=== PATIENT | female | born 1950 | race Caucasian/White ===

== ENCOUNTER 2017-05-31 05:25 | Inpatient (IN) | payer MEDICARE, MEDICAID ==
[~2017-05-31] VITALS: Ht 157.5 cm; Wt 72.6 kg
[~2017-05-31 05:25] MED LIST: AMAN100C16 PO; ATEN-42 PO; LISI40TA4 PO; PRAM1.5T6 PO; SIMV20TA6 PO; [UNRECOGNIZED DRUG - CODE] PO
[2017-05-31 06:29] LABS: CLARITY URINE CLEAR (CLEAR); COLOR URINE YELLOW (YELLOW); GLUCOSE URINE NEGATIVE (NEGATIVE); KETONES URINE NEGATIVE (NEGATIVE); LEUKOCYTE ESTERASE URINE 2+ (NEGATIVE); NITRITE URINE NEGATIVE (NEGATIVE); OCCULT BLOOD URINE NEGATIVE (NEGATIVE); PROTEIN URINE NEGATIVE (NEGATIVE); SPECIFIC GRAVITY URINE 1.021 (1.005-1.030); UROBILINOGEN URINE 0.2 E.U./dL (0.2-1.0)
[2017-05-31] MEDS ORDERED: LACTATED RINGERS 1,000 ML IV SCH (06:45)
[2017-05-31] MEDS ORDERED: LIDOCAINE HCL 1% 20ML VIAL (Pyxis) INJ ONE (07:18)
[2017-05-31] MEDS ORDERED: PROPOFOL 200MG/20ML VIAL IV ONE (07:18)
[2017-05-31] MEDS ORDERED: BUPIVACAINE/EPINEPH/PF 0.25%/0.0005 10ML ONE ×2 (07:18→07:31)
[2017-05-31] MEDS ORDERED: MORPHINE SULFATE/PF 1MG/ML 10ML AMP ONE (07:18)
[2017-05-31] MEDS ORDERED: NORMAL SALINE 0.9% 10 ML SYR ONE ×2 (07:18→07:41)
[2017-05-31] MEDS ORDERED: BACITRACIN 50,000 UNITS/VIAL ONE (07:19)
[2017-05-31] MEDS ORDERED: SODIUM CHLORIDE 0.9% 10ML VIAL ONE ×2 (07:20→07:51)
[2017-05-31] MEDS ORDERED: PHENYLEPHRINE HCL 10 MG/ML 1ML (IV VIAL) IV ONE (07:20)
[2017-05-31] MEDS ORDERED: EPHEDRINE SULFATE 50MG/ML VIAL ONE (07:20)
[2017-05-31] MEDS ORDERED: FENTANYL CITRATE/PF 50MCG/ML 2ML VIAL ONE (07:27)
[2017-05-31] MEDS ORDERED: MIDAZOLAM HCL 2 MG/2 ML VIAL ONE (07:27)
[2017-05-31] MEDS ORDERED: SODIUM CHLORIDE 0.9% 100 ML in TRANEXAMIC ACID 10 ML IV SCH (07:30)
[2017-05-31] MEDS ORDERED: ESMOLOL HCL 10MG/ML 10ML VIAL IV ONE (07:30)
[2017-05-31] MEDS ORDERED: ACETAMINOPHEN 325MG TABLET PO PRN (07:45)
[2017-05-31] MEDS ORDERED: ZOLPIDEM TARTRATE 5MG TABLET PO PRN (07:45)
[2017-05-31] MEDS ORDERED: HYDROCODONE/ACETAMINOPHEN 10/325MG TABLET PO PRN (07:45)
[2017-05-31] MEDS ORDERED: METHYLENE BLUE 50 MG/10 ML AMP IV ONE (07:45)
[2017-05-31] MEDS ORDERED: MAGNESIUM HYDROXIDE 400MG/5ML 30ML UDC PO PRN (07:45)
[2017-05-31] MEDS ORDERED: TRAMADOL 50MG TABLET PO PRN (07:45)
[2017-05-31] MEDS ORDERED: ONDANSETRON HCL 4MG/2ML VIAL IV PRN (07:45)
[2017-05-31] MEDS ORDERED: CEFAZOLIN SODIUM 1000MG/VIAL ONE (07:51)
[2017-05-31] MEDS ORDERED: METOCLOPRAMIDE HCL 10MG/2ML VIAL ONE (08:16)
[2017-05-31] MEDS ORDERED: DEXAMETHASONE 4MG/ML 1ML VIAL ONE (08:16)
[2017-05-31] MEDS ORDERED: GENTAMICIN SULF 40MG/ML 2ML VIAL ONE ×2 (08:28→09:46)
[2017-05-31] MEDS ORDERED: EPINEPHRINE 1:1000 1 MG/ML AMP ONE (08:29)
[2017-05-31] MEDS ORDERED: ROCURONIUM BROMIDE 10MG/ML VIAL 5ML IV ONE (08:49)
[2017-05-31] MEDS ORDERED: HYDRALAZINE 20MG/ML VIAL ONE (08:50)
[2017-05-31] MEDS ORDERED: MORPHINE SULFATE 2 MG/ML CPJ (NOT FOR IM USE) IV PRN (09:15)
[2017-05-31] MEDS ORDERED: LIDOCAINE HCL 1%/EPI 1:200,000 30 ML VIAL ONE (10:19)
[2017-05-31] MEDS ORDERED: BUPIVACAINE HCL 0.5% (5MG/ML) 50ML ONE (10:19)
[2017-05-31] MEDS ORDERED: TRANEXAMIC ACID 1,000 MG in SODIUM CHLORIDE 0.9% 100 ML IV NR (10:30)
[2017-05-31] MEDS ORDERED: LIDOCAINE HCL 2%/EPINEPHRINE/PF 10 ML VIAL INJ SCH (10:30)
[2017-05-31] MEDS ORDERED: NEOSTIGMINE METHYLSULFATE 1MG/ML 10 ML VIAL ONE (10:43)
[2017-05-31] MEDS ORDERED: GLYCOPYRROLATE 0.2 MG/ML 2ML VIAL ONE ×2 (10:43→11:13)
[2017-05-31] MEDS ORDERED: HYDR25TA PO (11:11)
[2017-05-31] MEDS ORDERED: ALEN70TA46 PO (11:11)
[2017-05-31] MEDS ORDERED: CHOL100044 PO (11:11)
[2017-05-31] MEDS ORDERED: ATEN-42 PO (11:11)
[2017-05-31] MEDS ORDERED: IBUP-1636 PO (11:11)
[2017-05-31] MEDS ORDERED: DICL100G16 TP (11:24)
[2017-05-31] MEDS ORDERED: HYDRALAZINE 20MG/ML VIAL IV ONE (11:45)
[2017-05-31] MEDS ORDERED: MORPHINE PCA 50MG/50ML IV PRN (12:00)
[2017-05-31] MEDS ORDERED: DIPHENHYDRAMINE INJ IV PRN (12:00)
[2017-05-31] MEDS ORDERED: ONDANSETRON INJ IV PRN (12:00)
[2017-05-31] MEDS ORDERED: NALOXONE INJ IV PRN (12:00)
[2017-05-31] MEDS ORDERED: MORPHINE SULFATE 4 MG/ML CPJ (NOT FOR IM USE) IV ONE (12:32)
[2017-05-31] MEDS ORDERED: HYDRALAZINE 20MG/ML VIAL IV NR (16:30)
[2017-05-31] MEDS ORDERED: DOCUSATE SODIUM 100MG CAPSULE PO SCH (17:00)
[2017-05-31] MEDS ORDERED: HYDRALAZINE 20MG/ML VIAL IV SCH ×2 (18:00→23:00)
[2017-05-31] MEDS ORDERED: NON PO (18:45)
[2017-05-31 19:30] VITALS: BP 128/77
[2017-05-31 20:00] VITALS: BP 150/78
[2017-05-31] MEDS: CARBIDOPA/LEVODOPA 25/100MG TABLET PO SCH (20:04)
[2017-05-31] MEDS: ATORVASTATIN CALCIUM 10MG TABLET PO SCH (20:04)
[2017-05-31] MEDS: ENTACAPONE 200MG TABLET PO SCH (20:05)
[2017-05-31] MEDS: AMANTADINE HCL 100 MG CAPSULE PO SCH (20:50)
[2017-05-31] MEDS ORDERED: NON FORMULARY PATIENT HOME MED EA PO SCH (21:00)
[2017-05-31] MEDS: CEFAZOLIN 2,000 MG in DEXT 5% WATER 100 ML IV SCH (21:59)
[2017-06-01] VITALS: BP 128/72
[2017-06-01 04:00] VITALS: BP 144/72
[2017-06-01] MEDS: CEFAZOLIN 2,000 MG in DEXT 5% WATER 100 ML IV SCH (05:30)
[2017-06-01] MEDS: CARBIDOPA/LEVODOPA 25/100MG TABLET PO SCH ×5 (06:17→20:45)
[2017-06-01 06:27] LABS: BASOPHILS % 0.3 % (0.0-2.0); EOSINOPHILS % 0.4 % (0.0-5.0); HEMATOCRIT. 31.3 % (36.0-48.0); HEMOGLOBIN. 10.3 g/dL (12.0-16.0); LYMPHOCYTES % 10.8 % (20.0-50.0); MEAN CORPUSCULAR HEMOGLOBIN 30.6 pg (28.0-32.0); MEAN CORPUSCULAR VOLUME 92.9 fL (81.0-99.0); MEAN PLATELET VOLUME 9.7 fl (7.4-10.4); MONOCYTES % 8.9 % (2.0-8.0); NEUTROPHILS % 79.6 % (40.0-76.0); PLATELET 198 x1000/uL (130-400); RED BLOOD CELL COUNT 3.37 mill/uL (4.2-5.4); RED CELL DISTRIBUTION WIDTH 14.6 % (11.6-14.6)
[2017-06-01] MEDS: ENTACAPONE 200MG TABLET PO SCH ×5 (06:38→20:44)
[2017-06-01 07:13] LABS: CARBON DIOXIDE 28 mEq/L (21-32); CHLORIDE 105 mEq/L (98-107)
[2017-06-01 08:00] VITALS: BP 147/66
[2017-06-01] MEDS ORDERED: NON FORMULARY PATIENT HOME MED EA PO SCH ×2 (09:00)
[2017-06-01] MEDS ORDERED: RIVAROXABAN 10 MG TABLET PO SCH (09:00)
[2017-06-01] MEDS: ATENOLOL 25MG TABLET PO SCH (09:09)
[2017-06-01] MEDS: AMANTADINE HCL 100 MG CAPSULE PO SCH ×3 (09:09→17:33)
[2017-06-01] MEDS: LISINOPRIL 40MG TABLET PO SCH ×2 (09:09→17:33)
[2017-06-01] MEDS: HYDROCODONE/ACETAMINOPHEN 10/325MG TABLET PO PRN ×2 (09:10→20:47)
[2017-06-01] MEDS: FERROUS SULFATE 325MG TABLET PO SCH ×3 (10:39→17:32)
[2017-06-01 12:00] VITALS: BP 119/59
[2017-06-01] MEDS: DOCUSATE SODIUM 100MG CAPSULE PO SCH ×2 (13:12→17:32)
[2017-06-01 16:00] VITALS: BP 151/75
[2017-06-01 20:00] VITALS: BP 143/62
[2017-06-01] MEDS: ATORVASTATIN CALCIUM 10MG TABLET PO SCH (20:44)
[2017-06-02] VITALS: BP 131/64
[2017-06-02] MEDS: HYDROCODONE/ACETAMINOPHEN 10/325MG TABLET PO PRN ×2 (01:39→05:16)
[2017-06-02 04:00] VITALS: BP 137/62
[2017-06-02] MEDS: ENTACAPONE 200MG TABLET PO SCH ×3 (06:05→13:51)
[2017-06-02] MEDS: CARBIDOPA/LEVODOPA 25/100MG TABLET PO SCH ×3 (06:06→13:51)
[2017-06-02 07:00] LABS: BASOPHILS % 0.3 % (0.0-2.0); EOSINOPHILS % 1.8 % (0.0-5.0); HEMATOCRIT. 29.9 % (36.0-48.0); HEMOGLOBIN. 10.2 g/dL (12.0-16.0); LYMPHOCYTES % 10.6 % (20.0-50.0); MEAN CORPUSCULAR HEMOGLOBIN 31.3 pg (28.0-32.0); MEAN CORPUSCULAR VOLUME 92.3 fL (81.0-99.0); MEAN PLATELET VOLUME 9.2 fl (7.4-10.4); MONOCYTES % 7.1 % (2.0-8.0); NEUTROPHILS % 80.2 % (40.0-76.0); PLATELET 166 x1000/uL (130-400); RED BLOOD CELL COUNT 3.24 mill/uL (4.2-5.4); RED CELL DISTRIBUTION WIDTH 14.7 % (11.6-14.6)
[2017-06-02 08:00] VITALS: BP 121/59
[2017-06-02] MEDS: LISINOPRIL 40MG TABLET PO SCH (08:34)
[2017-06-02] MEDS: ATENOLOL 25MG TABLET PO SCH (08:34)
[2017-06-02] MEDS: DOCUSATE SODIUM 100MG CAPSULE PO SCH (08:44)
[2017-06-02] MEDS: AMANTADINE HCL 100 MG CAPSULE PO SCH ×2 (08:44→12:14)
[2017-06-02] MEDS: FERROUS SULFATE 325MG TABLET PO SCH ×2 (08:44→12:14)
[2017-06-02 12:00] VITALS: BP 161/86
[2017-06-02 15:18] VITALS: BP 161/86
== END 2017-06-02 16:22 | disposition home health service (06) | DRG 302 ==
LOC: OR 05:25 → 6EST 18:20
PROVIDERS: ADMIT Internal Medicine; ATTEND Internal Medicine
PROC: 0SRD0J9 Replacement of Left Knee Joint with Synthetic Substitute, Cemented, Open Approach (ICD-10-PCS; principal; 2017-05-31 07:30)
DX: M17.12 Unilateral primary osteoarthritis, left knee (principal); G20 Parkinson's disease; E83.51 Hypocalcemia; I10 Essential (primary) hypertension; G89.29 Other chronic pain; M65.9 Synovitis and tenosynovitis, unspecified; Z96.612 Presence of left artificial shoulder joint; Z98.49 Cataract extraction status, unspecified eye; Z79.82 Long term (current) use of aspirin; Z79.899 Other long term (current) drug therapy
CPT/HCPCS: 36415; 73560; 80048; 81001; 85025; 86850; 86870; 86900; 86920; 88305; 88311; 93970; 97110; 97116; 97163; 97166; 97530; A4216; C1776; J0171; J0360; J0690; J1100; J1580; J2250; J2270; J2274; J2370; J2405; J2704; J2710; J2765; J3010; J3490; J7040; J7050; J7060; J7120; L1830; Q9968

== ENCOUNTER 2017-06-09 14:53 | Emergency (ER) | payer MEDICARE, MEDICAID ==
[~2017-06-09] VITALS: Ht 167.6 cm; Wt 76.0 kg
[~2017-06-09 14:53] MED LIST changes: +ALEN70TA46 PO; +CHOL100044 PO; +DICL100G16 TP; +HYDR25TA PO; +IBUP-1636 PO
[2017-06-09] MEDS ORDERED: SODIUM CHLORIDE 0.9% 1,000 ML IV ONE (15:46)
[2017-06-09 16:28] LABS: BASOPHILS % 0.4 % (0.0-2.0); EOSINOPHILS % 0.4 % (0.0-5.0); HEMATOCRIT. 33.4 % (36.0-48.0); HEMOGLOBIN. 11.1 g/dL (12.0-16.0); LYMPHOCYTES % 8.1 % (20.0-50.0); MEAN CORPUSCULAR HEMOGLOBIN 30.2 pg (28.0-32.0); MEAN CORPUSCULAR VOLUME 90.8 fL (81.0-99.0); MEAN PLATELET VOLUME 8.5 fl (7.4-10.4); MONOCYTES % 7.8 % (2.0-8.0); NEUTROPHILS % 83.3 % (40.0-76.0); PLATELET 308 x1000/uL (130-400); RED BLOOD CELL COUNT 3.68 mill/uL (4.2-5.4); RED CELL DISTRIBUTION WIDTH 14.1 % (11.6-14.6)
[2017-06-09 16:33] LABS: INR 1.1; PROTHROMBIN TIME 11.1 sec (9.4-11.6)
[2017-06-09 16:41] LABS: CARBON DIOXIDE 33 mEq/L (21-32); CHLORIDE 99 mEq/L (98-107)
[2017-06-09] MEDS ORDERED: CEFTRIAXONE 1 G PREMIX 50 ML IV ONE (17:15)
[2017-06-09] MEDS ORDERED: VANCOMYCIN 500 MG PREMIX 100 ML IV SCH (17:15)
[2017-06-09] MEDS ORDERED: TRAMADOL HCL/ACETAMINOPHEN 37.5/325MG TABLET PO ONE (18:45)
[2017-06-09] MEDS ORDERED: CARBIDOPA/LEVODOPA 25/100MG TABLET PO ONE (18:45)
[2017-06-09] MEDS ORDERED: ASPIRIN 325MG EC TABLET PO ONE (18:45)
[2017-06-09 19:42] VITALS: BP 155/95
== END 2017-06-09 20:38 | disposition home or self-care (01) ==
LOC: ER 14:53 → CANBEDREQ 20:57
DX: M25.562 Pain in left knee (principal); I10 Essential (primary) hypertension; E78.00 Pure hypercholesterolemia, unspecified; Z96.659 Presence of unspecified artificial knee joint
CPT/HCPCS: 36415; 80053; 83605; 85025; 85610; 85651; 86140; 87040; 96361; 96365; 96367; 99285; J0696; J3370; J7030

== ENCOUNTER 2017-06-18 13:18 | Inpatient (IN) | payer MEDICARE, MEDICAID ==
[~2017-06-18] VITALS: Ht 157.5 cm; Wt 64.9 kg
[2017-06-18 15:14] LABS: BASOPHILS % 0.7 % (0.0-2.0); EOSINOPHILS % 1.3 % (0.0-5.0); HEMATOCRIT. 30.5 % (36.0-48.0); HEMOGLOBIN. 10.3 g/dL (12.0-16.0); LYMPHOCYTES % 13.1 % (20.0-50.0); MEAN CORPUSCULAR HEMOGLOBIN 30.1 pg (28.0-32.0); NEUTROPHILS % 78.9 % (40.0-76.0); PLATELET 459 x1000/uL (130-400); RED BLOOD CELL COUNT 3.43 mill/uL (4.2-5.4); RED CELL DISTRIBUTION WIDTH 13.9 % (11.6-14.6)
[2017-06-18 15:22] LABS: INR 1.1; PROTHROMBIN TIME 11.4 sec (9.4-11.6)
[2017-06-18 15:31] LABS: CARBON DIOXIDE 29 mEq/L (21-32); CHLORIDE 102 mEq/L (98-107)
[2017-06-18 19:30] VITALS: BP 140/57
[2017-06-18 20:00] VITALS: BP 140/57
[2017-06-18] MEDS ORDERED: POTASSIUM CHLORIDE 20MEQ TABLET SR PO NR (21:11)
[2017-06-18] MEDS: CARBIDOPA/LEVODOPA 10/100MG TABLET PO SCH (23:17)
[2017-06-19] VITALS: BP 136/64
[2017-06-19 00:07] LABS: CLARITY URINE CLEAR (CLEAR); COLOR URINE YELLOW (YELLOW); GLUCOSE URINE NEGATIVE (NEGATIVE); KETONES URINE NEGATIVE (NEGATIVE); LEUKOCYTE ESTERASE URINE NEGATIVE (NEGATIVE); NITRITE URINE NEGATIVE (NEGATIVE); OCCULT BLOOD URINE NEGATIVE (NEGATIVE); PH URINE 6.5 (4.5-8.0); PROTEIN URINE NEGATIVE (NEGATIVE); SPECIFIC GRAVITY URINE 1.018 (1.005-1.030)
[2017-06-19] MEDS: PIPERACILLIN/TAZ 3.375G PREMIX 50 ML IV SCH ×5 (00:28→23:43)
[2017-06-19] MEDS: MORPHINE SULFATE 4 MG/ML CPJ (NOT FOR IM USE) IV PRN ×2 (00:36→10:11)
[2017-06-19] MEDS ORDERED: VANCOMYCIN 1 G PREMIX 200 ML IV NR (01:00)
[2017-06-19 04:00] VITALS: BP_SYST 120; BP_SYST 125; BP_DIAS 59; BP_DIAS 70
[2017-06-19 05:49] LABS: BASOPHILS % 0.5 % (0.0-2.0); HEMATOCRIT. 29.9 % (36.0-48.0); LYMPHOCYTES % 9.3 % (20.0-50.0); MEAN CORPUSCULAR HEMOGLOBIN 30.2 pg (28.0-32.0); MEAN CORPUSCULAR VOLUME 89.9 fL (81.0-99.0); MEAN PLATELET VOLUME 8.2 fl (7.4-10.4); MONOCYTES % 6.7 % (2.0-8.0); NEUTROPHILS % 82.5 % (40.0-76.0); PLATELET 437 x1000/uL (130-400); RED BLOOD CELL COUNT 3.32 mill/uL (4.2-5.4)
[2017-06-19] MEDS: CARBIDOPA/LEVODOPA 10/100MG TABLET PO SCH ×3 (06:00→21:27)
[2017-06-19 06:48] LABS: CARBON DIOXIDE 31 mEq/L (21-32); CHLORIDE 100 mEq/L (98-107)
[2017-06-19 08:00] VITALS: BP 136/58
[2017-06-19] MEDS: LISINOPRIL 40MG TABLET PO SCH ×2 (09:00→21:27)
[2017-06-19] MEDS: HYDROCHLOROTHIAZIDE 25MG TABLET PO SCH (09:00)
[2017-06-19] MEDS: CHOLECALCIFEROL (D3) 1000 UNIT TABLET PO SCH (09:00)
[2017-06-19] MEDS: ATENOLOL 25MG TABLET PO SCH (09:00)
[2017-06-19 12:10] VITALS: BP 138/69
[2017-06-19] MEDS ORDERED: CARBIDOPA/LEVODOPA 10/100MG TABLET PO SCH (14:00)
[2017-06-19] MEDS: PRAMIPEXOLE DI-HCL 0.5MG TABLET PO SCH ×2 (14:00→21:27)
[2017-06-19] MEDS ORDERED: GENTAMICIN SULF 40MG/ML 2ML VIAL ONE (14:12)
[2017-06-19] MEDS ORDERED: BUPIVACAINE/EPINEPHRINE/PF 0.25%/0.0005 30ML ONE (14:13)
[2017-06-19] MEDS ORDERED: BACITRACIN 50,000 UNITS/VIAL ONE (14:13)
[2017-06-19] MEDS ORDERED: HYDROMORPHONE HCL/PF 2MG/ML (OR) ONE (14:53)
[2017-06-19] MEDS ORDERED: TRANEXAMIC ACID 1,000 MG in SODIUM CHLORIDE 0.9% 100 ML IV NR ×2 (15:30→23:30)
[2017-06-19] MEDS ORDERED: VANCOMYCIN HCL 500 MG/VIAL ONE (15:31)
[2017-06-19] MEDS ORDERED: FENTANYL CITRATE/PF 50MCG/ML 2ML VIAL IV PRN (15:45)
[2017-06-19] MEDS ORDERED: ONDANSETRON HCL 4MG/2ML VIAL IV PRN ×2 (15:45→17:45)
[2017-06-19] MEDS ORDERED: HYDROMORPHONE HCL/PF 2MG/ML CPJ IV PRN (15:45)
[2017-06-19] MEDS ORDERED: MORPHINE SULFATE/PF 1MG/ML 10ML AMP ONE (15:49)
[2017-06-19] MEDS ORDERED: BACITRACIN/POLYMYXIN B SULFATE OINT 28.35GM TOP ONE (17:04)
[2017-06-19] MEDS ORDERED: MAGNESIUM HYDROXIDE 400MG/5ML 30ML UDC PO PRN (17:45)
[2017-06-19] MEDS ORDERED: ACETAMINOPHEN 325MG TABLET PO PRN (17:45)
[2017-06-19] MEDS ORDERED: HYDROCODONE/ACETAMINOPHEN 5/325MG TABLET PO PRN (17:45)
[2017-06-19] MEDS: FERROUS SULFATE 325MG TABLET PO SCH (17:50)
[2017-06-19] MEDS ORDERED: MORPHINE SULFATE 4 MG/ML CPJ (NOT FOR IM USE) IV PRN (18:00)
[2017-06-19] MEDS ORDERED: HYDROMORPHONE PCA 10MG/50ML IV PRN (18:45)
[2017-06-19] MEDS ORDERED: DIPHENHYDRAMINE INJ IV PRN (18:45)
[2017-06-19] MEDS ORDERED: NALOXONE INJ IV PRN (18:45)
[2017-06-19] MEDS ORDERED: ONDANSETRON INJ IV PRN (18:45)
[2017-06-19 20:00] VITALS: BP 125/62
[2017-06-20] VITALS: BP 118/64
[2017-06-20] MEDS: VANCOMYCIN 750 MG PREMIX 150 ML IV SCH ×2 (02:13→13:45)
[2017-06-20] MEDS: CARBIDOPA/LEVODOPA 10/100MG TABLET PO SCH ×3 (06:05→21:44)
[2017-06-20] MEDS: PIPERACILLIN/TAZ 3.375G PREMIX 50 ML IV SCH ×3 (06:05→18:50)
[2017-06-20] MEDS: PRAMIPEXOLE DI-HCL 0.5MG TABLET PO SCH ×3 (06:05→21:44)
[2017-06-20 06:56] LABS: BASOPHILS % 0.2 % (0.0-2.0); HEMATOCRIT. 28.9 % (36.0-48.0); HEMOGLOBIN. 9.8 g/dL (12.0-16.0); LYMPHOCYTES % 7.3 % (20.0-50.0); MEAN CORPUSCULAR HEMOGLOBIN 30.9 pg (28.0-32.0); MEAN PLATELET VOLUME 8.6 fl (7.4-10.4); NEUTROPHILS % 85.5 % (40.0-76.0); PLATELET 408 x1000/uL (130-400); RED BLOOD CELL COUNT 3.18 mill/uL (4.2-5.4)
[2017-06-20] MEDS: FERROUS SULFATE 325MG TABLET PO SCH ×3 (07:50→18:50)
[2017-06-20 08:00] VITALS: BP 149/63
[2017-06-20] MEDS: HYDROCHLOROTHIAZIDE 25MG TABLET PO SCH (10:30)
[2017-06-20] MEDS: CHOLECALCIFEROL (D3) 1000 UNIT TABLET PO SCH (10:30)
[2017-06-20] MEDS: DOCUSATE SODIUM 100MG CAPSULE PO SCH ×2 (10:30→18:50)
[2017-06-20] MEDS: LISINOPRIL 40MG TABLET PO SCH ×2 (10:30→21:44)
[2017-06-20] MEDS: ENOXAPARIN 40MG/0.4ML SYR SUBCUT SCH (10:31)
[2017-06-20] MEDS: ATENOLOL 25MG TABLET PO SCH (10:31)
[2017-06-20 12:00] VITALS: BP 132/63
[2017-06-20 16:00] VITALS: BP 117/62
[2017-06-20] MEDS ORDERED: TETANUS, DIPHTHERIA, PERTUSSIS VAC/PF 0.5ML (>7YR OLD) IM ONE (16:30)
[2017-06-20 20:00] VITALS: BP 107/97
[2017-06-21] VITALS: BP 124/68
[2017-06-21] MEDS: PIPERACILLIN/TAZ 3.375G PREMIX 50 ML IV SCH ×4 (00:44→17:47)
[2017-06-21] MEDS: VANCOMYCIN 750 MG PREMIX 150 ML IV SCH ×2 (01:57→13:15)
[2017-06-21 04:00] VITALS: BP 156/57
[2017-06-21] MEDS: CARBIDOPA/LEVODOPA 10/100MG TABLET PO SCH ×3 (05:57→21:35)
[2017-06-21] MEDS: PRAMIPEXOLE DI-HCL 0.5MG TABLET PO SCH ×3 (05:57→21:34)
[2017-06-21 08:00] VITALS: BP 126/62
[2017-06-21] MEDS: FERROUS SULFATE 325MG TABLET PO SCH ×3 (08:18→17:46)
[2017-06-21] MEDS: CHOLECALCIFEROL (D3) 1000 UNIT TABLET PO SCH (08:19)
[2017-06-21] MEDS: LISINOPRIL 40MG TABLET PO SCH ×2 (08:19→21:34)
[2017-06-21] MEDS: HYDROCHLOROTHIAZIDE 25MG TABLET PO SCH (08:19)
[2017-06-21] MEDS: DOCUSATE SODIUM 100MG CAPSULE PO SCH ×2 (08:19→17:46)
[2017-06-21] MEDS: ATENOLOL 25MG TABLET PO SCH (08:20)
[2017-06-21] MEDS: ENOXAPARIN 40MG/0.4ML SYR SUBCUT SCH (08:22)
[2017-06-21 12:00] VITALS: BP 108/56
[2017-06-21 16:00] VITALS: BP 138/72
[2017-06-21] MEDS: MORPHINE SULFATE 4 MG/ML CPJ (NOT FOR IM USE) IV PRN (18:53)
[2017-06-21 20:00] VITALS: BP 130/70
[2017-06-21] MEDS: HYDROCODONE/ACETAMINOPHEN 5/325MG TABLET PO PRN (21:47)
[2017-06-21] MEDS: CEFEPIME 2,000 MG in DEXT 5% WATER 100 ML IV SCH (22:51)
[2017-06-21] MEDS: LEVOFLOXACIN 250MG TABLET PO SCH (23:03)
[2017-06-22] VITALS (7 sets, daily range): BP systolic 103–154; BP diastolic 59–84
[2017-06-22] MEDS: CARBIDOPA/LEVODOPA 10/100MG TABLET PO SCH ×2 (05:45→13:21)
[2017-06-22] MEDS: PRAMIPEXOLE DI-HCL 0.5MG TABLET PO SCH ×2 (05:45→13:21)
[2017-06-22] MEDS: DOCUSATE SODIUM 100MG CAPSULE PO SCH ×2 (08:37→17:30)
[2017-06-22] MEDS: LISINOPRIL 40MG TABLET PO SCH ×2 (08:37→20:50)
[2017-06-22] MEDS: FERROUS SULFATE 325MG TABLET PO SCH ×3 (08:37→17:30)
[2017-06-22] MEDS: HYDROCHLOROTHIAZIDE 25MG TABLET PO SCH (08:37)
[2017-06-22] MEDS: CEFEPIME 2,000 MG in DEXT 5% WATER 100 ML IV SCH (08:37)
[2017-06-22] MEDS: CHOLECALCIFEROL (D3) 1000 UNIT TABLET PO SCH (08:37)
[2017-06-22] MEDS: ATENOLOL 25MG TABLET PO SCH (08:39)
[2017-06-22] MEDS: ENOXAPARIN 40MG/0.4ML SYR SUBCUT SCH (08:45)
[2017-06-22] MEDS: HYDROCODONE/ACETAMINOPHEN 5/325MG TABLET PO PRN (09:39)
[2017-06-22] MEDS ORDERED: MORPHINE SULFATE 4 MG/ML CPJ (NOT FOR IM USE) IV PRN (10:15)
[2017-06-22] MEDS: LEVOFLOXACIN 250MG TABLET PO SCH (20:50)
== END 2017-06-22 20:45 | DRG 791 ==
LOC: ER 14:01 → 6EST 15:39 → EDBEDREQ 15:41 → EDBEDREQTM 15:41 → ENRESERV 16:15
PROVIDERS: ADMIT Internal Medicine; ATTEND Internal Medicine
PROC: 0SRW0JZ Replacement of Left Knee Joint, Tibial Surface with Synthetic Substitute, Open Approach (ICD-10-PCS; 2017-06-19)
PROC: 0LQR0ZZ Repair Left Knee Tendon, Open Approach (ICD-10-PCS; 2017-06-19)
PROC: 0SPW0JZ Removal of Synthetic Substitute from Left Knee Joint, Tibial Surface, Open Approach (ICD-10-PCS; principal; 2017-06-19 12:00)
PROC: 02HV33Z Insertion of Infusion Device into Superior Vena Cava, Percutaneous Approach (ICD-10-PCS; 2017-06-22)
PROC: B5181ZA Fluoroscopy of Superior Vena Cava using Low Osmolar Contrast, Guidance (ICD-10-PCS; 2017-06-22)
DX: T81.31XA Disruption of external operation (surgical) wound, not elsewhere classified, initial encounter (principal); E44.0 Moderate protein-calorie malnutrition; G20 Parkinson's disease; M00.9 Pyogenic arthritis, unspecified; M25.062 Hemarthrosis, left knee; I10 Essential (primary) hypertension; D64.9 Anemia, unspecified; B96.5 Pseudomonas (aeruginosa) (mallei) (pseudomallei) as the cause of diseases classified elsewhere; E78.00 Pure hypercholesterolemia, unspecified; Z96.612 Presence of left artificial shoulder joint; Z96.652 Presence of left artificial knee joint; E66.9 Obesity, unspecified; B96.89 Other specified bacterial agents as the cause of diseases classified elsewhere; Y79.2 Prosthetic and other implants, materials and accessory orthopedic devices associated with adverse incidents; Y83.8 Other surgical procedures as the cause of abnormal reaction of the patient, or of later complication, without mention of misadventure at the time of the procedure; Y92.89 Other specified places as the place of occurrence of the external cause; Z68.26 Body mass index [BMI] 26.0-26.9, adult; Z79.899 Other long term (current) drug therapy; Z98.49 Cataract extraction status, unspecified eye; M96.840 Postprocedural hematoma of a musculoskeletal structure following a musculoskeletal system procedure
CPT/HCPCS: 36415; 36569; 71010; 73560; 76937; 77001; 80048; 80053; 80202; 81003; 85025; 85610; 85651; 86140; 86850; 86870; 86900; 87040; 87070; 87075; 87086; 87116; 87186; 87205; 88304; 90715; 93005; 93970; 97116; 97163; 97530; 99285; C1725; C1893; J0171; J0692; J1170; J1580; J1650; J2270; J2274; J2405; J2543; J3370; J3490; J7050; J7060; L8699

== ENCOUNTER 2020-06-03 10:32 | Inpatient (IN) | payer MEDICARE, MEDICAID ==
[~2020-06-03] VITALS: Ht 154.9 cm; Wt 71.8 kg
[~2020-06-03 10:32] MED LIST changes: -ALEN70TA46 PO; +ALEN70TA68 PO; -AMAN100C16 PO; +AMAN100T PO; -ATEN-42 PO; +CARB-32 PO; -DICL100G16 TP; +HYDR-4195 RC; -IBUP-1636 PO; +SIMV-43 PO; +SIMV-46 PO; -SIMV20TA6 PO; -[UNRECOGNIZED DRUG - CODE] PO
[2020-06-03] MEDS ORDERED: SODIUM CHLORIDE 0.9% 1,000 ML IV ONE (11:08)
[2020-06-03 11:55] LABS: BASOPHILS % 0.5 % (0.0-2.0); EOSINOPHILS % 3.2 % (0.0-5.0); HEMATOCRIT. 34.5 % (36.0-48.0); HEMOGLOBIN. 11.6 g/dL (12.0-16.0); LYMPHOCYTES % 12.3 % (20.0-50.0); MEAN CORPUSCULAR HEMOGLOBIN 31.9 pg (28.0-32.0); MONOCYTES % 5.6 % (2.0-8.0); NEUTROPHILS % 78.4 % (40.0-76.0); PLATELET 252 x1000/uL (130-400); RED BLOOD CELL COUNT 3.64 mill/uL (4.2-5.4); RED CELL DISTRIBUTION WIDTH 13.6 % (11.6-14.6)
[2020-06-03 11:58] LABS: CHLORIDE 106 mEq/L (98-107)
[2020-06-03 12:03] LABS: PARTIAL THROMBOPLASTIN TIME 22.3 sec (23.4-31.0); PROTHROMBIN TIME 10.6 sec (9.6-11.0)
[2020-06-03 14:08] LABS: CLARITY URINE CLEAR (CLEAR); COLOR URINE YELLOW (YELLOW); KETONES URINE NEGATIVE (NEGATIVE); LEUKOCYTE ESTERASE URINE NEGATIVE (NEGATIVE); NITRITE URINE NEGATIVE (NEGATIVE); OCCULT BLOOD URINE NEGATIVE (NEGATIVE); PROTEIN URINE TRACE (NEGATIVE); SPECIFIC GRAVITY URINE 1.016 (1.005-1.030)
[2020-06-03] MEDS ORDERED: ONDANSETRON HCL 4MG/2ML INJ IV PRN (15:45)
[2020-06-03 22:52] VITALS: BP 134/77
[2020-06-03] MEDS ORDERED: METO25TA6 PO (23:23)
[2020-06-04 00:11] VITALS: BP 126/64
[2020-06-04] MEDS: SODIUM CHLORIDE 0.9% 1,000 ML IV SCH ×2 (01:08→09:38)
[2020-06-04] MEDS ORDERED: PRAM0.5T3 PO (02:53)
[2020-06-04 04:00] VITALS: BP 146/65
[2020-06-04 06:11] LABS: BASOPHILS % 0.8 % (0.0-2.0); EOSINOPHILS % 5.7 % (0.0-5.0); HEMOGLOBIN. 10.3 g/dL (12.0-16.0); LYMPHOCYTES % 21.1 % (20.0-50.0); MEAN CORPUSCULAR HEMOGLOBIN 32.4 pg (28.0-32.0); MEAN CORPUSCULAR VOLUME 94.5 fL (81.0-99.0); MEAN PLATELET VOLUME 10.1 fl (7.4-10.4); MONOCYTES % 8.4 % (2.0-8.0); PLATELET 202 x1000/uL (130-400); RED BLOOD CELL COUNT 3.18 mill/uL (4.2-5.4); RED CELL DISTRIBUTION WIDTH 13.4 % (11.6-14.6)
[2020-06-04 08:00] VITALS: BP 134/71
[2020-06-04] MEDS ORDERED: MEDICATION NOT ON FORMULARY EA (Simvastatin 20 MG) PO SCH (09:00)
[2020-06-04] MEDS ORDERED: PRAMIPEXOLE DI-HCL 0.25MG TABLET PO SCH (09:00)
[2020-06-04] MEDS ORDERED: PRAMIPEXOLE DI HCL 0.5 MG PO SCH (09:00)
[2020-06-04] MEDS ORDERED: HYDROCHLOROTHIAZIDE 25MG TABLET PO SCH (09:00)
[2020-06-04] MEDS: CHOLECALCIFEROL (D3) 1000 UNIT TABLET PO SCH (09:23)
[2020-06-04] MEDS: CARBIDOPA/LEVODOPA 25/100MG TABLET PO SCH ×4 (09:23→21:18)
[2020-06-04] MEDS: HYDROCORTISONE 2.5% RECTAL CREAM 30GM PR SCH (09:25)
[2020-06-04] MEDS: PRAMIPEXOLE DI-HCL 0.25MG TABLET PO SCH ×3 (09:26→17:43)
[2020-06-04] MEDS: AMANTADINE HCL 100 MG CAPSULE PO SCH ×3 (09:40→17:43)
[2020-06-04] MEDS ORDERED: PNEUMOCOCCAL 23-VAL P-SAC VAC 0.5 ML IM ONE (12:00)
[2020-06-04 12:06] VITALS: BP 133/69
[2020-06-04 12:06] LABS: PLATELET ESTIMATE NORMAL
[2020-06-04 16:00] VITALS: BP 152/76
[2020-06-04 20:00] VITALS: BP 176/88
[2020-06-04] MEDS ORDERED: CLONIDINE 0.1MG TABLET PO PRN (20:45)
[2020-06-04] MEDS ORDERED: HYDROCHLOROTHIAZIDE 12.5MG CAPSULE PO SCH (20:48)
[2020-06-04] MEDS: ATORVASTATIN CALCIUM 10MG TABLET PO SCH (21:18)
[2020-06-05] VITALS: BP 115/79
[2020-06-05 03:09] LABS: OPIATES URINE SCREEN NEGATIVE (NEGATIVE)
[2020-06-05 03:10] LABS: *AMPHETAMINES SCREEN URINE NEGATIVE (NEGATIVE); *BENZODIAZEPINES SCREEN URINE NEGATIVE (NEGATIVE); *COCAINE SCREEN URINE NEGATIVE (NEGATIVE); CANNABINOID URINE SCREEN NEGATIVE (NEGATIVE); METHADONE URINE SCREEN NEGATIVE (NEGATIVE); PHENCYCLIDINE URINE SCREEN NEGATIVE (NEGATIVE)
[2020-06-05 03:11] LABS: *BARBITURATES SCREEN URINE NEGATIVE (NEGATIVE)
[2020-06-05 04:00] VITALS: BP 156/81
[2020-06-05] MEDS ORDERED: ALENDRONATE SODIUM 35MG TABLET PO SCH (07:20)
[2020-06-05 08:15] VITALS: BP 151/90
[2020-06-05] MEDS: CHOLECALCIFEROL (D3) 1000 UNIT TABLET PO SCH (09:36)
[2020-06-05] MEDS: HYDROCHLOROTHIAZIDE 12.5MG CAPSULE PO SCH (09:37)
[2020-06-05] MEDS: PRAMIPEXOLE DI-HCL 0.25MG TABLET PO SCH ×3 (09:37→20:05)
[2020-06-05] MEDS: AMANTADINE HCL 100 MG CAPSULE PO SCH ×3 (09:37→17:25)
[2020-06-05] MEDS: HYDROCORTISONE 2.5% RECTAL CREAM 30GM PR SCH (09:38)
[2020-06-05] MEDS: AMLODIPINE 10MG TABLET PO SCH (09:38)
[2020-06-05] MEDS: CARBIDOPA/LEVODOPA 25/100MG TABLET PO SCH ×4 (09:38→20:05)
[2020-06-05] MEDS: DOCUSATE SODIUM 100MG CAPSULE PO SCH ×2 (11:33→17:25)
[2020-06-05 11:59] VITALS: BP 148/77
[2020-06-05 15:48] VITALS: BP 138/85
[2020-06-05 20:00] VITALS: BP 140/77
[2020-06-05] MEDS: ATORVASTATIN CALCIUM 10MG TABLET PO SCH (20:05)
[2020-06-05] MEDS: POLYETHYLENE GLYCOL 3350 (17GM) 1 DOSE PACK PO SCH (20:06)
[2020-06-06 00:35] VITALS: BP 135/83
[2020-06-06 04:00] VITALS: BP 152/86
[2020-06-06 07:19] LABS: BASOPHILS % 0.6 % (0.0-2.0); EOSINOPHILS % 5.2 % (0.0-5.0); HEMATOCRIT. 36.9 % (36.0-48.0); HEMOGLOBIN. 12.7 g/dL (12.0-16.0); LYMPHOCYTES % 13.7 % (20.0-50.0); MEAN CORPUSCULAR HEMOGLOBIN 32.1 pg (28.0-32.0); MEAN CORPUSCULAR VOLUME 93.6 fL (81.0-99.0); MEAN PLATELET VOLUME 9.6 fl (7.4-10.4); MONOCYTES % 6.9 % (2.0-8.0); NEUTROPHILS % 73.6 % (40.0-76.0); PLATELET 222 x1000/uL (130-400); RED BLOOD CELL COUNT 3.94 mill/uL (4.2-5.4); RED CELL DISTRIBUTION WIDTH 13.1 % (11.6-14.6)
[2020-06-06 07:47] VITALS: BP 153/75
[2020-06-06] MEDS: HYDROCHLOROTHIAZIDE 12.5MG CAPSULE PO SCH (09:31)
[2020-06-06] MEDS: HYDROCORTISONE 2.5% RECTAL CREAM 30GM PR SCH (09:31)
[2020-06-06] MEDS: CARBIDOPA/LEVODOPA 25/100MG TABLET PO SCH ×4 (09:32→20:58)
[2020-06-06] MEDS: CHOLECALCIFEROL (D3) 1000 UNIT TABLET PO SCH (09:32)
[2020-06-06] MEDS: AMLODIPINE 10MG TABLET PO SCH (09:32)
[2020-06-06] MEDS: DOCUSATE SODIUM 100MG CAPSULE PO SCH ×2 (09:32→17:11)
[2020-06-06] MEDS: AMANTADINE HCL 100 MG CAPSULE PO SCH ×3 (09:32→17:11)
[2020-06-06] MEDS: PRAMIPEXOLE DI-HCL 0.25MG TABLET PO SCH ×3 (09:32→17:11)
[2020-06-06] MEDS: ACETAMINOPHEN 325MG TABLET PO PRN (09:32)
[2020-06-06 11:57] VITALS: BP 128/76
[2020-06-06] MEDS: LACTULOSE 20G/30ML UDC PO SCH ×3 (13:32→20:58)
[2020-06-06 16:23] VITALS: BP 96/61
[2020-06-06 20:00] VITALS: BP 117/73
[2020-06-06] MEDS: ATORVASTATIN CALCIUM 10MG TABLET PO SCH (20:58)
[2020-06-06] MEDS: POLYETHYLENE GLYCOL 3350 (17GM) 1 DOSE PACK PO SCH ×2 (20:58→21:00)
[2020-06-06] MEDS: LORAZEPAM 2MG/ML CPJ IV PRN (21:41)
[2020-06-07 00:21] VITALS: BP 120/77
[2020-06-07 04:00] VITALS: BP 136/76
[2020-06-07] MEDS: LORAZEPAM 2MG/ML CPJ IV PRN (06:28)
[2020-06-07 08:00] VITALS: BP 135/78
[2020-06-07 08:27] LABS: FOLIC ACID (FOLATE) SERUM 13.3 ng/mL (>5.38)
[2020-06-07] MEDS: PRAMIPEXOLE DI-HCL 0.25MG TABLET PO SCH ×3 (09:00→17:00)
[2020-06-07] MEDS: CHOLECALCIFEROL (D3) 1000 UNIT TABLET PO SCH (09:00)
[2020-06-07] MEDS: AMLODIPINE 10MG TABLET PO SCH (09:00)
[2020-06-07] MEDS: CARBIDOPA/LEVODOPA 25/100MG TABLET PO SCH ×4 (09:00→23:06)
[2020-06-07] MEDS: DOCUSATE SODIUM 100MG CAPSULE PO SCH ×2 (09:00→17:00)
[2020-06-07] MEDS: HYDROCHLOROTHIAZIDE 12.5MG CAPSULE PO SCH (09:00)
[2020-06-07] MEDS: AMANTADINE HCL 100 MG CAPSULE PO SCH ×3 (09:00→17:00)
[2020-06-07] MEDS: LACTULOSE 20G/30ML UDC PO SCH ×4 (09:00→23:06)
[2020-06-07] MEDS: HYDROCORTISONE 2.5% RECTAL CREAM 30GM PR SCH (11:05)
[2020-06-07 12:00] VITALS: BP 151/91
[2020-06-07 16:00] VITALS: BP 132/85
[2020-06-07 20:16] VITALS: BP 112/62
[2020-06-07] MEDS: POLYETHYLENE GLYCOL 3350 (17GM) 1 DOSE PACK PO SCH ×2 (23:06→23:12)
[2020-06-07] MEDS: ATORVASTATIN CALCIUM 10MG TABLET PO SCH (23:06)
[2020-06-08 00:48] VITALS: BP 110/55
[2020-06-08 04:49] VITALS: BP 126/75
[2020-06-08 08:00] VITALS: BP 136/98
[2020-06-08] MEDS: HYDROCORTISONE 2.5% RECTAL CREAM 30GM PR SCH (09:00)
[2020-06-08] MEDS: LACTULOSE 20G/30ML UDC PO SCH ×4 (09:00→21:47)
[2020-06-08] MEDS: DOCUSATE SODIUM 100MG CAPSULE PO SCH ×2 (09:00→17:56)
[2020-06-08] MEDS: CARBIDOPA/LEVODOPA 25/100MG TABLET PO SCH ×4 (09:00→21:54)
[2020-06-08] MEDS: AMLODIPINE 10MG TABLET PO SCH (09:45)
[2020-06-08] MEDS: PRAMIPEXOLE DI-HCL 0.25MG TABLET PO SCH ×3 (09:46→17:56)
[2020-06-08] MEDS: CHOLECALCIFEROL (D3) 1000 UNIT TABLET PO SCH (09:46)
[2020-06-08] MEDS: AMANTADINE HCL 100 MG CAPSULE PO SCH ×3 (09:47→17:56)
[2020-06-08] MEDS: HYDROCHLOROTHIAZIDE 12.5MG CAPSULE PO SCH (09:54)
[2020-06-08 12:00] VITALS: BP 113/70
[2020-06-08 16:00] VITALS: BP 144/84
[2020-06-08 20:03] VITALS: BP 115/70
[2020-06-08] MEDS: ATORVASTATIN CALCIUM 10MG TABLET PO SCH (21:41)
[2020-06-08] MEDS: ACETAMINOPHEN 325MG TABLET PO PRN (21:43)
[2020-06-09] VITALS (7 sets, daily range): BP systolic 112–140; BP diastolic 59–94
[2020-06-09 07:05] LABS: BASOPHILS % 0.8 % (0.0-2.0); EOSINOPHILS % 5.1 % (0.0-5.0); HEMATOCRIT. 39.7 % (36.0-48.0); HEMOGLOBIN. 13.3 g/dL (12.0-16.0); LYMPHOCYTES % 15.8 % (20.0-50.0); MEAN CORPUSCULAR HEMOGLOBIN 31.8 pg (28.0-32.0); MEAN CORPUSCULAR VOLUME 95.2 fL (81.0-99.0); MEAN PLATELET VOLUME 10.3 fl (7.4-10.4); MONOCYTES % 8.4 % (2.0-8.0); NEUTROPHILS % 69.9 % (40.0-76.0); PLATELET 265 x1000/uL (130-400); RED BLOOD CELL COUNT 4.17 mill/uL (4.2-5.4); RED CELL DISTRIBUTION WIDTH 13.4 % (11.6-14.6)
[2020-06-09] MEDS: CHOLECALCIFEROL (D3) 1000 UNIT TABLET PO SCH (08:35)
[2020-06-09] MEDS: DOCUSATE SODIUM 100MG CAPSULE PO SCH ×2 (08:35→16:24)
[2020-06-09] MEDS: AMLODIPINE 10MG TABLET PO SCH (08:36)
[2020-06-09] MEDS: HYDROCHLOROTHIAZIDE 12.5MG CAPSULE PO SCH (08:36)
[2020-06-09] MEDS: AMANTADINE HCL 100 MG CAPSULE PO SCH ×3 (08:36→16:24)
[2020-06-09] MEDS: PRAMIPEXOLE DI-HCL 0.25MG TABLET PO SCH ×3 (08:36→16:24)
[2020-06-09] MEDS: LACTULOSE 20G/30ML UDC PO SCH ×5 (08:41→20:26)
[2020-06-09] MEDS: HYDROCORTISONE 2.5% RECTAL CREAM 30GM PR SCH (08:48)
[2020-06-09] MEDS: CARBIDOPA/LEVODOPA 25/100MG TABLET PO SCH ×5 (09:00→20:26)
[2020-06-09] MEDS ORDERED: SODIUM CHLORIDE 0.9% 1,000 ML IV SCH (13:00)
[2020-06-09] MEDS ORDERED: POTASSIUM CHLORIDE 20MEQ TABLET SR PO NR (13:00)
[2020-06-09] MEDS: ACETAMINOPHEN 325MG TABLET PO PRN (13:50)
[2020-06-09] MEDS: ATORVASTATIN CALCIUM 10MG TABLET PO SCH (20:26)
[2020-06-09] MEDS: POLYETHYLENE GLYCOL 3350 (17GM) 1 DOSE PACK PO SCH (20:26)
[2020-06-11 07:08] LABS: 25-HYDROXY VITAMIN D3 45 ng/mL (.)
[2020-06-23] MEDS ORDERED: AMLO10TA80 MT (11:05)
[2020-06-23] MEDS ORDERED: PRAM0.5T3 PO (11:05)
[2020-06-23] MEDS ORDERED: SIMV-43 PO (11:05)
[2020-06-23] MEDS ORDERED: AMAN100T PO (11:05)
[2020-06-23] MEDS ORDERED: CARB-32 PO (11:05)
== END 2020-06-09 21:00 | DRG 469 ==
LOC: ER 11:10 → EDBEDREQTM 12:36 → EDBEDREQ 12:36 → 6WST 14:53 → EDBEDREQ 14:57 → ENRESERV 20:27
PROVIDERS: ADMIT Internal Medicine; ATTEND Internal Medicine
DX: N17.0 Acute kidney failure with tubular necrosis (principal); G92 Toxic encephalopathy; G20 Parkinson's disease; E46 Unspecified protein-calorie malnutrition; G82.50 Quadriplegia, unspecified; E78.00 Pure hypercholesterolemia, unspecified; E86.9 Volume depletion, unspecified; E78.5 Hyperlipidemia, unspecified; I12.9 Hypertensive chronic kidney disease with stage 1 through stage 4 chronic kidney disease, or unspecified chronic kidney disease; M81.0 Age-related osteoporosis without current pathological fracture; N18.9 Chronic kidney disease, unspecified; Z96.652 Presence of left artificial knee joint; R13.10 Dysphagia, unspecified; D63.8 Anemia in other chronic diseases classified elsewhere; F02.80 Dementia in other diseases classified elsewhere, unspecified severity, without behavioral disturbance, psychotic disturbance, mood disturbance, and anxiety; Z96.612 Presence of left artificial shoulder joint; L89.892 Pressure ulcer of other site, stage 2; M19.90 Unspecified osteoarthritis, unspecified site; R53.81 Other malaise; Z79.899 Other long term (current) drug therapy
CPT/HCPCS: 36415; 70551; 71045; 80048; 80053; 80305; 80320; 81003; 82040; 82306; 82607; 82746; 83605; 83880; 84134; 84439; 84443; 84484; 85025; 92523; 92610; 93005; 93970; 97110; 97162; 97166; 97530; 99285; J2060; J7030; G0480

== ENCOUNTER 2021-04-28 10:01 | Inpatient (IN) | payer MEDICARE, MEDICAID ==
[~2021-04-28] VITALS: Ht 167.6 cm; Wt 58.5 kg
[~2021-04-28 10:01] MED LIST changes: -ALEN70TA68 PO; +ALEN70TA79 PO; +AMLO10TA80 MT; -HYDR25TA PO; -LISI40TA4 PO; +PRAM0.5T3 PO; -PRAM1.5T6 PO; -SIMV-46 PO
[2021-04-28 11:28] LABS: BASOPHILS % 0.5 % (0.0-2.0); EOSINOPHILS % 2.1 % (0.0-5.0); HEMATOCRIT. 36.8 % (36.0-48.0); HEMOGLOBIN. 13.2 g/dL (12.0-16.0); LYMPHOCYTES % 16.6 % (20.0-50.0); MEAN CORPUSCULAR HEMOGLOBIN 33.7 pg (28.0-32.0); MEAN CORPUSCULAR VOLUME 93.9 fL (81.0-99.0); MEAN PLATELET VOLUME 9.2 fl (7.4-10.4); MONOCYTES % 5.8 % (2.0-8.0); PLATELET 258 x1000/uL (130-400); RED BLOOD CELL COUNT 3.92 mill/uL (4.2-5.4); RED CELL DISTRIBUTION WIDTH 13.9 % (11.6-14.6)
[2021-04-28 11:37] LABS: PROTHROMBIN TIME 10.9 sec (9.6-11.0)
[2021-04-28 11:41] LABS: CHLORIDE 106 mEq/L (98-107)
[2021-04-28] MEDS ORDERED: ONDANSETRON HCL 4MG/2ML INJ IV ONE (12:30)
[2021-04-28] MEDS ORDERED: MORPHINE SULFATE 4 MG/ML CPJ (NOT FOR IM USE) IV ONE (12:30)
[2021-04-28] MEDS ORDERED: IOHEXOL-300 100 ML BOTTLE ONE (14:32)
[2021-04-28] MEDS ORDERED: ONDANSETRON HCL 4MG/2ML INJ IV PRN (15:15)
[2021-04-28] MEDS ORDERED: LEVOFLOXACIN 500MG PREMIX 100 ML IV SCH (15:30)
[2021-04-28] MEDS ORDERED: PIPERACILLIN/TAZ 3.375G PREMIX 50 ML IV NR (15:30)
[2021-04-28] MEDS: METRONIDAZOLE 500 MG PREMIX 100 ML IV SCH (17:15)
[2021-04-28 17:59] LABS: CLARITY URINE CLOUDY (CLEAR); COLOR URINE YELLOW (YELLOW); KETONES URINE NEGATIVE (NEGATIVE); LEUKOCYTE ESTERASE URINE 1+ (NEGATIVE); NITRITE URINE NEGATIVE (NEGATIVE); OCCULT BLOOD URINE NEGATIVE (NEGATIVE); PH URINE 7.5 (4.5-8.0); PROTEIN URINE NEGATIVE (NEGATIVE); SPECIFIC GRAVITY URINE 1.059 (1.005-1.030)
[2021-04-28] MEDS: METOCLOPRAMIDE HCL 10MG/2ML VIAL IV SCH (18:43)
[2021-04-28] MEDS ORDERED: PIPERACILLIN/TAZOBACTAM 3.375G in DEXT 5% WATER 50ML IV SCH (22:00)
[2021-04-28] MEDS ORDERED: PIPERACILLIN/TAZOBACTAM 3.375 G/VIAL IV SCH (22:00)
[2021-04-29] VITALS: BP 129/75
[2021-04-29] MEDS: METRONIDAZOLE 500 MG PREMIX 100 ML IV SCH (02:22)
[2021-04-29] MEDS: METOCLOPRAMIDE HCL 10MG/2ML VIAL IV SCH ×4 (02:22→18:39)
[2021-04-29 04:00] VITALS: BP 122/65
[2021-04-29] MEDS ORDERED: AMAN100C16 PO (04:25)
[2021-04-29] MEDS ORDERED: PRAM0.5T3 PO (04:25)
[2021-04-29] MEDS ORDERED: MORPHINE SULFATE 2 MG/ML CPJ (NOT FOR IM USE) IV PRN ×2 (06:45→22:45)
[2021-04-29 07:19] LABS: BASOPHILS % 0.6 % (0.0-2.0); EOSINOPHILS % 1.5 % (0.0-5.0); HEMATOCRIT. 39.3 % (36.0-48.0); HEMOGLOBIN. 13.2 g/dL (12.0-16.0); LYMPHOCYTES % 33.6 % (20.0-50.0); MEAN CORPUSCULAR HEMOGLOBIN 31.2 pg (28.0-32.0); MEAN CORPUSCULAR VOLUME 93.1 fL (81.0-99.0); MEAN PLATELET VOLUME 9.5 fl (7.4-10.4); MONOCYTES % 6.7 % (2.0-8.0); NEUTROPHILS % 57.6 % (40.0-76.0); PLATELET 260 x1000/uL (130-400); RED BLOOD CELL COUNT 4.22 mill/uL (4.2-5.4); RED CELL DISTRIBUTION WIDTH 13.9 % (11.6-14.6)
[2021-04-29 07:32] LABS: CHLORIDE 109 mEq/L (98-107)
[2021-04-29 08:00] VITALS: BP 124/68
[2021-04-29] MEDS ORDERED: METRONIDAZOLE 500 MG PREMIX 100 ML IV SCH (08:30)
[2021-04-29] MEDS: LACTULOSE 20G/30ML UDC PO SCH ×4 (08:37→20:00)
[2021-04-29] MEDS ORDERED: NA PHOS,M-B/NA PHOS,DI-BA ENEMA 118ML PR ONE (09:00)
[2021-04-29] MEDS ORDERED: BISACODYL 10MG SUPP PR NR (10:00)
[2021-04-29 12:00] VITALS: BP 135/55
[2021-04-29] MEDS ORDERED: MAGNESIUM CITRATE 300ML SOLUTION GT NR (12:00)
[2021-04-29] MEDS: LEVOFLOXACIN 500MG TABLET PO SCH (15:17)
[2021-04-29] MEDS ORDERED: LEVOFLOXACIN 500MG PREMIX 100 ML IV SCH (15:30)
[2021-04-29 16:00] VITALS: BP 137/80
[2021-04-29] MEDS: CARBIDOPA/LEVODOPA 25/100MG TABLET PO SCH (18:39)
[2021-04-29 20:00] VITALS: BP 133/71
[2021-04-29] MEDS: PRAMIPEXOLE DI-HCL 0.25MG TABLET PO SCH (21:21)
[2021-04-29] MEDS: ATORVASTATIN CALCIUM 10MG TABLET PO SCH (21:21)
[2021-04-29] MEDS: COLCHICINE 0.6MG TABLET PO SCH (23:09)
[2021-04-30] VITALS (7 sets, daily range): BP systolic 104–163; BP diastolic 44–78
[2021-04-30] MEDS: CARBIDOPA/LEVODOPA 25/100MG TABLET PO SCH ×4 (00:33→17:40)
[2021-04-30] MEDS: METOCLOPRAMIDE HCL 10MG/2ML VIAL IV SCH ×4 (00:33→17:40)
[2021-04-30] MEDS: LACTULOSE 20G/30ML UDC PO SCH ×6 (03:52→20:00)
[2021-04-30] MEDS: SODIUM CHLORIDE 0.9% 1,000 ML IV SCH ×2 (05:52→05:53)
[2021-04-30] MEDS: PRAMIPEXOLE DI-HCL 0.25MG TABLET PO SCH ×3 (05:52→21:35)
[2021-04-30] MEDS: CHOLECALCIFEROL (D3) 1000 UNIT TABLET PO SCH (09:48)
[2021-04-30] MEDS: COLCHICINE 0.6MG TABLET PO SCH (09:48)
[2021-04-30] MEDS: AMLODIPINE 10MG TABLET PO SCH (09:49)
[2021-04-30] MEDS: ALENDRONATE SODIUM 35MG TABLET PO SCH (09:49)
[2021-04-30] MEDS ORDERED: NALOXONE HCL 0.4MG/ML VIAL IV PRN (11:30)
[2021-04-30] MEDS: LEVOFLOXACIN 500MG TABLET PO SCH (12:02)
[2021-04-30] MEDS ORDERED: BISACODYL 10MG SUPP PR PRN (15:00)
[2021-04-30] MEDS: ATORVASTATIN CALCIUM 10MG TABLET PO SCH (21:35)
[2021-04-30] MEDS: HYDROCODONE/ACETAMINOPHEN 5/325MG TABLET PO PRN (21:37)
[2021-05-01] MEDS: METOCLOPRAMIDE HCL 10MG/2ML VIAL IV SCH ×4 (01:08→18:44)
[2021-05-01] MEDS: CARBIDOPA/LEVODOPA 25/100MG TABLET PO SCH ×4 (01:09→18:44)
[2021-05-01] MEDS: SODIUM CHLORIDE 0.9% 1,000 ML IV SCH ×2 (01:10→21:07)
[2021-05-01 04:00] VITALS: BP 149/80
[2021-05-01] MEDS: LACTULOSE 20G/30ML UDC PO SCH ×6 (04:00→21:06)
[2021-05-01] MEDS: PRAMIPEXOLE DI-HCL 0.25MG TABLET PO SCH ×3 (05:41→21:06)
[2021-05-01 08:00] VITALS: BP 110/84
[2021-05-01] MEDS: POLYETHYLENE GLYCOL 3350 (17GM) 1 DOSE PACK PO SCH (09:00)
[2021-05-01] MEDS: CHOLECALCIFEROL (D3) 1000 UNIT TABLET PO SCH (09:30)
[2021-05-01] MEDS: AMLODIPINE 10MG TABLET PO SCH (09:30)
[2021-05-01] MEDS: COLCHICINE 0.6MG TABLET PO SCH (09:30)
[2021-05-01] MEDS: NA PHOS,M-B/NA PHOS,DI-BA ENEMA 118ML PR SCH ×2 (11:00→11:45)
[2021-05-01] MEDS ORDERED: MINERAL OIL ENEMA 133ML PR NR (11:45)
[2021-05-01 12:00] VITALS: BP 120/65
[2021-05-01] MEDS ORDERED: MAGNESIUM CITRATE 300ML SOLUTION PO NR (12:15)
[2021-05-01] MEDS: AMOXICILLIN 500 MG CAPSULE PO SCH ×2 (15:14→23:31)
[2021-05-01 16:00] VITALS: BP 139/76
[2021-05-01 20:00] VITALS: BP 121/70
[2021-05-01] MEDS: ATORVASTATIN CALCIUM 10MG TABLET PO SCH (21:06)
[2021-05-02] VITALS: BP 106/63
[2021-05-02] MEDS: LACTULOSE 20G/30ML UDC PO SCH ×6 (00:49→20:00)
[2021-05-02] MEDS: METOCLOPRAMIDE HCL 10MG/2ML VIAL IV SCH ×4 (00:49→19:14)
[2021-05-02] MEDS: CARBIDOPA/LEVODOPA 25/100MG TABLET PO SCH ×4 (00:49→19:14)
[2021-05-02 04:00] VITALS: BP 121/67
[2021-05-02] MEDS: PRAMIPEXOLE DI-HCL 0.25MG TABLET PO SCH ×3 (06:00→21:28)
[2021-05-02] MEDS: AMOXICILLIN 500 MG CAPSULE PO SCH ×3 (06:00→21:28)
[2021-05-02 08:00] VITALS: BP_SYST 124; BP_SYST 132; BP_DIAS 58; BP_DIAS 72
[2021-05-02] MEDS: CHOLECALCIFEROL (D3) 1000 UNIT TABLET PO SCH (10:07)
[2021-05-02] MEDS: COLCHICINE 0.6MG TABLET PO SCH (10:07)
[2021-05-02] MEDS: POLYETHYLENE GLYCOL 3350 (17GM) 1 DOSE PACK PO SCH (10:08)
[2021-05-02] MEDS: AMLODIPINE 10MG TABLET PO SCH (10:08)
[2021-05-02 12:00] VITALS: BP 124/58
[2021-05-02 16:00] VITALS: BP 129/55
[2021-05-02] MEDS: SODIUM CHLORIDE 0.9% 1,000 ML IV SCH (19:14)
[2021-05-02 20:00] VITALS: BP 125/55
[2021-05-02] MEDS: ATORVASTATIN CALCIUM 10MG TABLET PO SCH (21:27)
[2021-05-02] MEDS: HYDROCODONE/ACETAMINOPHEN 5/325MG TABLET PO PRN (21:30)
[2021-05-03] VITALS: BP 124/60
[2021-05-03] MEDS: CARBIDOPA/LEVODOPA 25/100MG TABLET PO SCH ×4 (00:28→18:11)
[2021-05-03] MEDS: METOCLOPRAMIDE HCL 10MG/2ML VIAL IV SCH ×4 (00:28→18:10)
[2021-05-03 04:00] VITALS: BP 132/58
[2021-05-03] MEDS: LACTULOSE 20G/30ML UDC PO SCH ×6 (04:00→20:00)
[2021-05-03] MEDS: AMOXICILLIN 500 MG CAPSULE PO SCH ×3 (05:32→22:26)
[2021-05-03] MEDS: PRAMIPEXOLE DI-HCL 0.25MG TABLET PO SCH ×3 (05:32→22:26)
[2021-05-03 08:00] VITALS: BP 142/70
[2021-05-03] MEDS: COLCHICINE 0.6MG TABLET PO SCH (09:58)
[2021-05-03] MEDS: CHOLECALCIFEROL (D3) 1000 UNIT TABLET PO SCH (09:59)
[2021-05-03] MEDS: AMLODIPINE 10MG TABLET PO SCH (09:59)
[2021-05-03] MEDS: POLYETHYLENE GLYCOL 3350 (17GM) 1 DOSE PACK PO SCH (09:59)
[2021-05-03 12:00] VITALS: BP 142/70
[2021-05-03] MEDS: SODIUM CHLORIDE 0.9% 1,000 ML IV SCH (13:50)
[2021-05-03 20:00] VITALS: BP 127/64
[2021-05-03] MEDS: ATORVASTATIN CALCIUM 10MG TABLET PO SCH (22:26)
[2021-05-03] MEDS: HYDROCODONE/ACETAMINOPHEN 5/325MG TABLET PO PRN (22:30)
[2021-05-04] VITALS: BP 130/69
[2021-05-04] MEDS: METOCLOPRAMIDE HCL 10MG/2ML VIAL IV SCH ×4 (00:19→18:48)
[2021-05-04] MEDS: CARBIDOPA/LEVODOPA 25/100MG TABLET PO SCH ×4 (00:19→18:47)
[2021-05-04 04:00] VITALS: BP 139/73
[2021-05-04] MEDS: LACTULOSE 20G/30ML UDC PO SCH ×7 (04:00→20:00)
[2021-05-04] MEDS: PRAMIPEXOLE DI-HCL 0.25MG TABLET PO SCH ×2 (05:17→13:45)
[2021-05-04] MEDS: AMOXICILLIN 500 MG CAPSULE PO SCH ×2 (05:17→13:44)
[2021-05-04 08:00] VITALS: BP 145/98
[2021-05-04] MEDS: POLYETHYLENE GLYCOL 3350 (17GM) 1 DOSE PACK PO SCH (09:00)
[2021-05-04] MEDS: CHOLECALCIFEROL (D3) 1000 UNIT TABLET PO SCH (09:07)
[2021-05-04] MEDS: AMLODIPINE 10MG TABLET PO SCH (09:07)
[2021-05-04] MEDS: COLCHICINE 0.6MG TABLET PO SCH (09:07)
[2021-05-04 12:00] VITALS: BP 138/93
[2021-05-04] MEDS: SODIUM CHLORIDE 0.9% 1,000 ML IV SCH (13:44)
[2021-05-04 16:00] VITALS: BP 136/73
[2021-05-04] MEDS: HYDROCODONE/ACETAMINOPHEN 5/325MG TABLET PO PRN (17:58)
[2021-05-05] MEDS: METOCLOPRAMIDE HCL 10MG/2ML VIAL IV SCH ×5 (00:07→23:26)
[2021-05-05] MEDS: HYDROCODONE/ACETAMINOPHEN 5/325MG TABLET PO PRN ×2 (00:09→23:24)
[2021-05-05] MEDS: ATORVASTATIN CALCIUM 10MG TABLET PO SCH ×2 (00:09→21:58)
[2021-05-05] MEDS: PRAMIPEXOLE DI-HCL 0.25MG TABLET PO SCH ×4 (00:11→22:31)
[2021-05-05] MEDS: CARBIDOPA/LEVODOPA 25/100MG TABLET PO SCH ×5 (00:13→23:26)
[2021-05-05] MEDS: AMOXICILLIN 500 MG CAPSULE PO SCH ×4 (01:52→22:31)
[2021-05-05] MEDS: LACTULOSE 20G/30ML UDC PO SCH ×7 (01:55→23:26)
[2021-05-05] MEDS: SODIUM CHLORIDE 0.9% 1,000 ML IV SCH (06:45)
[2021-05-05 08:00] VITALS: BP 145/75
[2021-05-05] MEDS: AMLODIPINE 10MG TABLET PO SCH (09:20)
[2021-05-05] MEDS: POLYETHYLENE GLYCOL 3350 (17GM) 1 DOSE PACK PO SCH (09:20)
[2021-05-05] MEDS: COLCHICINE 0.6MG TABLET PO SCH (09:21)
[2021-05-05] MEDS: CHOLECALCIFEROL (D3) 1000 UNIT TABLET PO SCH (09:44)
[2021-05-05 12:00] VITALS: BP 147/79
[2021-05-05 16:00] VITALS: BP 123/84
[2021-05-05 20:00] VITALS: BP 126/77
[2021-05-05] MEDS ORDERED: NALOXONE HCL 0.4MG/ML VIAL IV PRN (23:30)
[2021-05-06 01:18] VITALS: BP 111/55
[2021-05-06] MEDS: LACTULOSE 20G/30ML UDC PO SCH ×5 (04:27→21:06)
[2021-05-06] MEDS: SODIUM CHLORIDE 0.9% 1,000 ML IV SCH ×2 (04:27→21:07)
[2021-05-06 05:22] VITALS: BP 132/73
[2021-05-06] MEDS: PRAMIPEXOLE DI-HCL 0.25MG TABLET PO SCH ×3 (06:25→21:07)
[2021-05-06] MEDS: METOCLOPRAMIDE HCL 10MG/2ML VIAL IV SCH ×3 (06:25→18:20)
[2021-05-06] MEDS: CARBIDOPA/LEVODOPA 25/100MG TABLET PO SCH ×3 (06:25→18:20)
[2021-05-06] MEDS: AMOXICILLIN 500 MG CAPSULE PO SCH ×3 (06:25→21:07)
[2021-05-06] MEDS: HYDROCODONE/ACETAMINOPHEN 5/325MG TABLET PO PRN (07:01)
[2021-05-06] MEDS: POLYETHYLENE GLYCOL 3350 (17GM) 1 DOSE PACK PO SCH (09:33)
[2021-05-06] MEDS: CHOLECALCIFEROL (D3) 1000 UNIT TABLET PO SCH (09:33)
[2021-05-06] MEDS: COLCHICINE 0.6MG TABLET PO SCH (09:33)
[2021-05-06] MEDS: AMLODIPINE 10MG TABLET PO SCH (09:34)
[2021-05-06 20:00] VITALS: BP 119/56
[2021-05-06] MEDS: ATORVASTATIN CALCIUM 10MG TABLET PO SCH (21:07)
[2021-05-07] VITALS: BP 123/65
[2021-05-07] MEDS: METOCLOPRAMIDE HCL 10MG/2ML VIAL IV SCH ×5 (00:30→23:43)
[2021-05-07] MEDS: CARBIDOPA/LEVODOPA 25/100MG TABLET PO SCH ×5 (00:30→23:42)
[2021-05-07] MEDS: HYDROCODONE/ACETAMINOPHEN 5/325MG TABLET PO PRN ×3 (00:36→17:44)
[2021-05-07 04:00] VITALS: BP 127/80
[2021-05-07] MEDS: LACTULOSE 20G/30ML UDC PO SCH ×7 (04:00→23:41)
[2021-05-07] MEDS: PRAMIPEXOLE DI-HCL 0.25MG TABLET PO SCH ×3 (05:23→21:04)
[2021-05-07 08:00] VITALS: BP 148/85
[2021-05-07] MEDS: COLCHICINE 0.6MG TABLET PO SCH (09:24)
[2021-05-07] MEDS: POLYETHYLENE GLYCOL 3350 (17GM) 1 DOSE PACK PO SCH (09:24)
[2021-05-07] MEDS: CHOLECALCIFEROL (D3) 1000 UNIT TABLET PO SCH (09:24)
[2021-05-07] MEDS: AMLODIPINE 10MG TABLET PO SCH (09:25)
[2021-05-07] MEDS: ALENDRONATE SODIUM 35MG TABLET PO SCH (09:42)
[2021-05-07 12:00] VITALS: BP 143/72
[2021-05-07 16:00] VITALS: BP 128/67
[2021-05-07] MEDS: SODIUM CHLORIDE 0.9% 1,000 ML IV SCH (17:45)
[2021-05-07 20:43] VITALS: BP 110/56
[2021-05-07] MEDS: ATORVASTATIN CALCIUM 10MG TABLET PO SCH (21:04)
[2021-05-08] VITALS: BP 120/70
[2021-05-08] MEDS: HYDROCODONE/ACETAMINOPHEN 5/325MG TABLET PO PRN ×3 (02:47→19:56)
[2021-05-08 04:00] VITALS: BP 151/83
[2021-05-08] MEDS: LACTULOSE 20G/30ML UDC PO SCH ×5 (04:00→19:57)
[2021-05-08] MEDS: PRAMIPEXOLE DI-HCL 0.25MG TABLET PO SCH ×3 (05:36→21:56)
[2021-05-08] MEDS: METOCLOPRAMIDE HCL 10MG/2ML VIAL IV SCH ×3 (05:36→17:51)
[2021-05-08] MEDS: CARBIDOPA/LEVODOPA 25/100MG TABLET PO SCH ×3 (05:40→17:52)
[2021-05-08 08:00] VITALS: BP 130/64
[2021-05-08] MEDS: POLYETHYLENE GLYCOL 3350 (17GM) 1 DOSE PACK PO SCH (09:00)
[2021-05-08] MEDS: COLCHICINE 0.6MG TABLET PO SCH (10:20)
[2021-05-08] MEDS: AMLODIPINE 10MG TABLET PO SCH (10:21)
[2021-05-08] MEDS: CHOLECALCIFEROL (D3) 1000 UNIT TABLET PO SCH (10:21)
[2021-05-08 12:00] VITALS: BP 157/76
[2021-05-08] MEDS: SODIUM CHLORIDE 0.9% 1,000 ML IV SCH (13:48)
[2021-05-08 16:00] VITALS: BP 166/70
[2021-05-08] MEDS: CLONIDINE 0.1MG TABLET PO PRN (17:52)
[2021-05-08 20:32] VITALS: BP 138/75
[2021-05-08] MEDS: ATORVASTATIN CALCIUM 10MG TABLET PO SCH (21:56)
[2021-05-09] MEDS: CARBIDOPA/LEVODOPA 25/100MG TABLET PO SCH ×4 (00:42→18:25)
[2021-05-09] MEDS: METOCLOPRAMIDE HCL 10MG/2ML VIAL IV SCH ×4 (00:43→18:26)
[2021-05-09 02:56] VITALS: BP 138/75
[2021-05-09] MEDS: LACTULOSE 20G/30ML UDC PO SCH ×6 (04:00→21:50)
[2021-05-09 05:35] VITALS: BP 141/73
[2021-05-09] MEDS: PRAMIPEXOLE DI-HCL 0.25MG TABLET PO SCH ×3 (05:44→21:50)
[2021-05-09] MEDS: POLYETHYLENE GLYCOL 3350 (17GM) 1 DOSE PACK PO SCH (09:41)
[2021-05-09] MEDS: CHOLECALCIFEROL (D3) 1000 UNIT TABLET PO SCH (09:42)
[2021-05-09] MEDS: COLCHICINE 0.6MG TABLET PO SCH (09:42)
[2021-05-09] MEDS: AMLODIPINE 10MG TABLET PO SCH (09:42)
[2021-05-09] MEDS: HYDROCODONE/ACETAMINOPHEN 5/325MG TABLET PO PRN (18:25)
[2021-05-09 20:00] VITALS: BP 109/72
[2021-05-09] MEDS: ATORVASTATIN CALCIUM 10MG TABLET PO SCH (21:51)
[2021-05-10] VITALS: BP 120/70
[2021-05-10] MEDS: METOCLOPRAMIDE HCL 10MG/2ML VIAL IV SCH ×4 (01:13→17:57)
[2021-05-10] MEDS: LACTULOSE 20G/30ML UDC PO SCH ×6 (01:13→20:00)
[2021-05-10] MEDS: CARBIDOPA/LEVODOPA 25/100MG TABLET PO SCH ×4 (01:13→17:57)
[2021-05-10] MEDS: HYDROCODONE/ACETAMINOPHEN 5/325MG TABLET PO PRN ×2 (03:31→16:01)
[2021-05-10 04:00] VITALS: BP 104/60
[2021-05-10] MEDS: PRAMIPEXOLE DI-HCL 0.25MG TABLET PO SCH ×3 (05:57→21:26)
[2021-05-10 08:00] VITALS: BP 101/63
[2021-05-10] MEDS: AMLODIPINE 10MG TABLET PO SCH (09:00)
[2021-05-10] MEDS: COLCHICINE 0.6MG TABLET PO SCH (09:00)
[2021-05-10] MEDS: CHOLECALCIFEROL (D3) 1000 UNIT TABLET PO SCH (09:00)
[2021-05-10] MEDS: POLYETHYLENE GLYCOL 3350 (17GM) 1 DOSE PACK PO SCH (09:00)
[2021-05-10 12:00] VITALS: BP 131/76
[2021-05-10 16:00] VITALS: BP 120/66
[2021-05-10 20:00] VITALS: BP 122/70
[2021-05-10] MEDS: ATORVASTATIN CALCIUM 10MG TABLET PO SCH (21:26)
[2021-05-11] VITALS: BP 139/81
[2021-05-11] MEDS: CARBIDOPA/LEVODOPA 25/100MG TABLET PO SCH ×5 (00:35→23:52)
[2021-05-11] MEDS: METOCLOPRAMIDE HCL 10MG/2ML VIAL IV SCH ×5 (00:35→23:09)
[2021-05-11 04:00] VITALS: BP 139/64
[2021-05-11] MEDS: LACTULOSE 20G/30ML UDC PO SCH ×7 (04:00→23:09)
[2021-05-11] MEDS ORDERED: HYDROCODONE/ACETAMINOPHEN 5/325MG TABLET PO PRN (05:15)
[2021-05-11] MEDS: PRAMIPEXOLE DI-HCL 0.25MG TABLET PO SCH ×3 (06:04→22:38)
[2021-05-11 08:00] VITALS: BP 129/75
[2021-05-11] MEDS: POLYETHYLENE GLYCOL 3350 (17GM) 1 DOSE PACK PO SCH (08:59)
[2021-05-11] MEDS: AMLODIPINE 10MG TABLET PO SCH (10:00)
[2021-05-11] MEDS: COLCHICINE 0.6MG TABLET PO SCH (10:01)
[2021-05-11] MEDS: CHOLECALCIFEROL (D3) 1000 UNIT TABLET PO SCH (10:01)
[2021-05-11 20:00] VITALS: BP 131/74
[2021-05-11] MEDS: ATORVASTATIN CALCIUM 10MG TABLET PO SCH (20:08)
[2021-05-12] VITALS: BP 152/85
[2021-05-12] MEDS: LACTULOSE 20G/30ML UDC PO SCH ×7 (03:27→21:28)
[2021-05-12 04:00] VITALS: BP 130/66
[2021-05-12] MEDS: METOCLOPRAMIDE HCL 10MG/2ML VIAL IV SCH ×3 (05:21→17:16)
[2021-05-12] MEDS: PRAMIPEXOLE DI-HCL 0.25MG TABLET PO SCH ×3 (05:50→21:28)
[2021-05-12] MEDS: CARBIDOPA/LEVODOPA 25/100MG TABLET PO SCH ×3 (05:50→17:16)
[2021-05-12 08:00] VITALS: BP 161/84
[2021-05-12] MEDS: POLYETHYLENE GLYCOL 3350 (17GM) 1 DOSE PACK PO SCH ×2 (09:00→09:23)
[2021-05-12] MEDS: CHOLECALCIFEROL (D3) 1000 UNIT TABLET PO SCH (09:24)
[2021-05-12] MEDS: COLCHICINE 0.6MG TABLET PO SCH (09:24)
[2021-05-12] MEDS: AMLODIPINE 10MG TABLET PO SCH (09:28)
[2021-05-12] MEDS: CLONIDINE 0.1MG TABLET PO PRN (09:44)
[2021-05-12 12:00] VITALS: BP 133/76
[2021-05-12] MEDS: TRAMADOL 50MG TABLET PO PRN (13:08)
[2021-05-12 16:00] VITALS: BP 141/75
[2021-05-12 19:51] LABS: CHLORIDE 103 mEq/L (98-107)
[2021-05-12 19:56] LABS: BASOPHILS % 0.3 % (0.0-2.0); EOSINOPHILS % 0.1 % (0.0-5.0); HEMATOCRIT. 37.6 % (36.0-48.0); HEMOGLOBIN. 13.4 g/dL (12.0-16.0); LYMPHOCYTES % 15.8 % (20.0-50.0); MEAN CORPUSCULAR HEMOGLOBIN 32.5 pg (28.0-32.0); MEAN CORPUSCULAR VOLUME 91.3 fL (81.0-99.0); MEAN PLATELET VOLUME 9.4 fl (7.4-10.4); NEUTROPHILS % 74.8 % (40.0-76.0); PLATELET 238 x1000/uL (130-400); RED BLOOD CELL COUNT 4.12 mill/uL (4.2-5.4); RED CELL DISTRIBUTION WIDTH 13.8 % (11.6-14.6)
[2021-05-12 20:00] VITALS: BP 157/80
[2021-05-12] MEDS: ATORVASTATIN CALCIUM 10MG TABLET PO SCH (21:28)
[2021-05-13] VITALS: BP 149/81
[2021-05-13] MEDS: CARBIDOPA/LEVODOPA 25/100MG TABLET PO SCH ×4 (00:05→17:20)
[2021-05-13 04:00] VITALS: BP 153/82
[2021-05-13] MEDS: METOCLOPRAMIDE HCL 10MG/2ML VIAL IV SCH ×5 (06:00→17:16)
[2021-05-13] MEDS: LACTULOSE 20G/30ML UDC PO SCH ×6 (06:05→20:00)
[2021-05-13] MEDS: PRAMIPEXOLE DI-HCL 0.25MG TABLET PO SCH ×3 (06:05→21:44)
[2021-05-13 08:00] VITALS: BP 136/78
[2021-05-13] MEDS: POTASSIUM CHLORIDE 20MEQ TABLET SR PO SCH (08:20)
[2021-05-13] MEDS: CHOLECALCIFEROL (D3) 1000 UNIT TABLET PO SCH (08:20)
[2021-05-13] MEDS: POLYETHYLENE GLYCOL 3350 (17GM) 1 DOSE PACK PO SCH (08:21)
[2021-05-13] MEDS: COLCHICINE 0.6MG TABLET PO SCH (08:21)
[2021-05-13] MEDS: AMLODIPINE 10MG TABLET PO SCH (08:22)
[2021-05-13 12:00] VITALS: BP 141/82
[2021-05-13 16:00] VITALS: BP 115/70
[2021-05-13] MEDS: ATORVASTATIN CALCIUM 10MG TABLET PO SCH (21:44)
[2021-05-13] MEDS: TRAMADOL 50MG TABLET PO PRN (22:05)
[2021-05-14] MEDS: CARBIDOPA/LEVODOPA 25/100MG TABLET PO SCH ×5 (01:18→23:52)
[2021-05-14 04:00] VITALS: BP 155/79
[2021-05-14] MEDS: LACTULOSE 20G/30ML UDC PO SCH ×6 (04:00→20:00)
[2021-05-14] MEDS: METOCLOPRAMIDE HCL 10MG/2ML VIAL IV SCH ×5 (06:00→23:52)
[2021-05-14] MEDS: PRAMIPEXOLE DI-HCL 0.25MG TABLET PO SCH ×3 (06:39→22:20)
[2021-05-14 08:00] VITALS: BP 144/81
[2021-05-14] MEDS: COLCHICINE 0.6MG TABLET PO SCH (09:35)
[2021-05-14] MEDS: POLYETHYLENE GLYCOL 3350 (17GM) 1 DOSE PACK PO SCH (09:36)
[2021-05-14] MEDS: ALENDRONATE SODIUM 35MG TABLET PO SCH (09:36)
[2021-05-14] MEDS: POTASSIUM CHLORIDE 20MEQ TABLET SR PO SCH (09:36)
[2021-05-14] MEDS: AMLODIPINE 10MG TABLET PO SCH (09:39)
[2021-05-14] MEDS: CHOLECALCIFEROL (D3) 1000 UNIT TABLET PO SCH (09:40)
[2021-05-14 12:00] VITALS: BP 146/85
[2021-05-14 16:00] VITALS: BP 117/73
[2021-05-14 20:00] VITALS: BP 123/68
[2021-05-14] MEDS: ATORVASTATIN CALCIUM 10MG TABLET PO SCH (22:20)
[2021-05-15] VITALS: BP 141/88
[2021-05-15 04:00] VITALS: BP 109/70
[2021-05-15] MEDS: LACTULOSE 20G/30ML UDC PO SCH ×3 (04:00→08:00)
[2021-05-15] MEDS: METOCLOPRAMIDE HCL 10MG/2ML VIAL IV SCH ×3 (06:00→12:00)
[2021-05-15] MEDS: CARBIDOPA/LEVODOPA 25/100MG TABLET PO SCH ×3 (06:56→18:44)
[2021-05-15] MEDS: PRAMIPEXOLE DI-HCL 0.25MG TABLET PO SCH ×3 (06:56→21:38)
[2021-05-15 08:00] VITALS: BP 137/94
[2021-05-15] MEDS: AMLODIPINE 10MG TABLET PO SCH (08:57)
[2021-05-15] MEDS: POLYETHYLENE GLYCOL 3350 (17GM) 1 DOSE PACK PO SCH (08:57)
[2021-05-15] MEDS: POTASSIUM CHLORIDE 20MEQ TABLET SR PO SCH (08:58)
[2021-05-15] MEDS: COLCHICINE 0.6MG TABLET PO SCH (08:58)
[2021-05-15] MEDS: CHOLECALCIFEROL (D3) 1000 UNIT TABLET PO SCH (08:58)
[2021-05-15 12:00] VITALS: BP 153/87
[2021-05-15] MEDS: METOCLOPRAMIDE HCL 10MG TABLET PO SCH (14:00)
[2021-05-15 20:00] VITALS: BP 160/99
[2021-05-15] MEDS: ATORVASTATIN CALCIUM 10MG TABLET PO SCH (21:38)
[2021-05-16] VITALS: BP 147/80
[2021-05-16] MEDS: METOCLOPRAMIDE HCL 10MG TABLET PO SCH ×4 (01:56→18:21)
[2021-05-16] MEDS: CARBIDOPA/LEVODOPA 25/100MG TABLET PO SCH ×4 (01:56→18:21)
[2021-05-16 04:00] VITALS: BP 161/90
[2021-05-16] MEDS: CLONIDINE 0.1MG TABLET PO PRN (06:59)
[2021-05-16] MEDS: PRAMIPEXOLE DI-HCL 0.25MG TABLET PO SCH ×3 (06:59→21:46)
[2021-05-16 08:00] VITALS: BP 103/96
[2021-05-16] MEDS: AMLODIPINE 10MG TABLET PO SCH (09:00)
[2021-05-16] MEDS: POLYETHYLENE GLYCOL 3350 (17GM) 1 DOSE PACK PO SCH (09:00)
[2021-05-16] MEDS: CHOLECALCIFEROL (D3) 1000 UNIT TABLET PO SCH (11:23)
[2021-05-16] MEDS: POTASSIUM CHLORIDE 20MEQ TABLET SR PO SCH (11:23)
[2021-05-16] MEDS: COLCHICINE 0.6MG TABLET PO SCH (11:23)
[2021-05-16 12:00] VITALS: BP 132/75
[2021-05-16 16:00] VITALS: BP 110/62
[2021-05-16 20:00] VITALS: BP 126/52
[2021-05-16] MEDS: ATORVASTATIN CALCIUM 10MG TABLET PO SCH (21:46)
[2021-05-16 21:55] LABS: BASOPHILS % 0.6 % (0.0-2.0); EOSINOPHILS % 3.9 % (0.0-5.0); HEMATOCRIT. 38.3 % (36.0-48.0); HEMOGLOBIN. 13.1 g/dL (12.0-16.0); MEAN CORPUSCULAR HEMOGLOBIN 31.7 pg (28.0-32.0); MEAN CORPUSCULAR VOLUME 92.6 fL (81.0-99.0); MEAN PLATELET VOLUME 9.2 fl (7.4-10.4); MONOCYTES % 7.7 % (2.0-8.0); NEUTROPHILS % 54.8 % (40.0-76.0); PLATELET 275 x1000/uL (130-400); RED BLOOD CELL COUNT 4.13 mill/uL (4.2-5.4); RED CELL DISTRIBUTION WIDTH 13.8 % (11.6-14.6)
[2021-05-16 22:24] LABS: CHLORIDE 107 mEq/L (98-107)
[2021-05-17] VITALS: BP 122/79
[2021-05-17] MEDS: METOCLOPRAMIDE HCL 10MG TABLET PO SCH ×5 (00:43→23:24)
[2021-05-17] MEDS: CARBIDOPA/LEVODOPA 25/100MG TABLET PO SCH ×5 (00:43→23:24)
[2021-05-17 04:00] VITALS: BP 141/83
[2021-05-17] MEDS: PRAMIPEXOLE DI-HCL 0.25MG TABLET PO SCH ×3 (06:26→21:56)
[2021-05-17 08:00] VITALS: BP 136/84
[2021-05-17] MEDS: POLYETHYLENE GLYCOL 3350 (17GM) 1 DOSE PACK PO SCH (09:00)
[2021-05-17] MEDS: CHOLECALCIFEROL (D3) 1000 UNIT TABLET PO SCH (10:30)
[2021-05-17] MEDS: COLCHICINE 0.6MG TABLET PO SCH (10:31)
[2021-05-17] MEDS: AMLODIPINE 10MG TABLET PO SCH (10:31)
[2021-05-17] MEDS: POTASSIUM CHLORIDE 20MEQ TABLET SR PO SCH (10:32)
[2021-05-17 11:56] VITALS: BP 154/92
[2021-05-17 20:00] VITALS: BP 137/102
[2021-05-17] MEDS: ATORVASTATIN CALCIUM 10MG TABLET PO SCH (21:56)
[2021-05-18] VITALS: BP 138/85
[2021-05-18 04:00] VITALS: BP 136/66
[2021-05-18] MEDS: CARBIDOPA/LEVODOPA 25/100MG TABLET PO SCH ×3 (06:38→17:58)
[2021-05-18] MEDS: PRAMIPEXOLE DI-HCL 0.25MG TABLET PO SCH ×3 (06:38→21:06)
[2021-05-18] MEDS: METOCLOPRAMIDE HCL 10MG TABLET PO SCH ×3 (06:38→17:58)
[2021-05-18 08:00] VITALS: BP 148/87
[2021-05-18] MEDS ORDERED: TRAMADOL 50MG TABLET PO PRN (08:00)
[2021-05-18] MEDS ORDERED: NALOXONE HCL 0.4MG/ML VIAL IV PRN (08:15)
[2021-05-18] MEDS: POLYETHYLENE GLYCOL 3350 (17GM) 1 DOSE PACK PO SCH (09:00)
[2021-05-18] MEDS: COLCHICINE 0.6MG TABLET PO SCH (10:25)
[2021-05-18] MEDS: AMLODIPINE 10MG TABLET PO SCH (10:25)
[2021-05-18] MEDS: CHOLECALCIFEROL (D3) 1000 UNIT TABLET PO SCH (10:26)
[2021-05-18] MEDS: POTASSIUM CHLORIDE 20MEQ TABLET SR PO SCH (10:26)
[2021-05-18] MEDS: HYDROCODONE/ACETAMINOPHEN 5/325MG TABLET PO PRN ×2 (10:27→18:05)
[2021-05-18 16:00] VITALS: BP 112/70
[2021-05-18 20:00] VITALS: BP 166/87
[2021-05-18] MEDS: CLONIDINE 0.1MG TABLET PO PRN (21:06)
[2021-05-18] MEDS: ATORVASTATIN CALCIUM 10MG TABLET PO SCH (21:06)
[2021-05-19] VITALS: BP 131/83
[2021-05-19] MEDS: METOCLOPRAMIDE HCL 10MG TABLET PO SCH ×5 (00:50→22:09)
[2021-05-19] MEDS: CARBIDOPA/LEVODOPA 25/100MG TABLET PO SCH ×5 (00:50→22:09)
[2021-05-19 04:00] VITALS: BP 125/80
[2021-05-19] MEDS: PRAMIPEXOLE DI-HCL 0.25MG TABLET PO SCH ×3 (05:40→22:10)
[2021-05-19 08:00] VITALS: BP 112/66
[2021-05-19] MEDS: CHOLECALCIFEROL (D3) 1000 UNIT TABLET PO SCH (09:53)
[2021-05-19] MEDS: POTASSIUM CHLORIDE 20MEQ TABLET SR PO SCH (09:53)
[2021-05-19] MEDS: COLCHICINE 0.6MG TABLET PO SCH (09:53)
[2021-05-19] MEDS: AMLODIPINE 10MG TABLET PO SCH (09:53)
[2021-05-19] MEDS: MULTIVITAMINS,THER W-MINERALS TABLET PO SCH (09:53)
[2021-05-19] MEDS: POLYETHYLENE GLYCOL 3350 (17GM) 1 DOSE PACK PO SCH (09:53)
[2021-05-19] MEDS: ZINC SULFATE 220 MG ( 50 ) CAPSULE PO SCH (09:53)
[2021-05-19] MEDS: ASCORBIC ACID 500 MG TABLET PO SCH (09:53)
[2021-05-19 12:00] VITALS: BP 116/66
[2021-05-19] MEDS: HYDROCODONE/ACETAMINOPHEN 5/325MG TABLET PO PRN ×2 (15:34→22:16)
[2021-05-19 16:00] VITALS: BP 106/69
[2021-05-19 20:00] VITALS: BP 111/72
[2021-05-19] MEDS: ATORVASTATIN CALCIUM 10MG TABLET PO SCH (22:09)
[2021-05-20] VITALS: BP 114/71
[2021-05-20 04:00] VITALS: BP 132/76
[2021-05-20] MEDS: CARBIDOPA/LEVODOPA 25/100MG TABLET PO SCH ×3 (05:53→18:37)
[2021-05-20] MEDS: METOCLOPRAMIDE HCL 10MG TABLET PO SCH ×3 (05:53→18:36)
[2021-05-20] MEDS: PRAMIPEXOLE DI-HCL 0.25MG TABLET PO SCH ×3 (05:54→22:33)
[2021-05-20 08:00] VITALS: BP 152/61
[2021-05-20] MEDS: CHOLECALCIFEROL (D3) 1000 UNIT TABLET PO SCH (09:00)
[2021-05-20] MEDS: POLYETHYLENE GLYCOL 3350 (17GM) 1 DOSE PACK PO SCH (09:00)
[2021-05-20] MEDS: POTASSIUM CHLORIDE 20MEQ TABLET SR PO SCH (10:44)
[2021-05-20] MEDS: ASCORBIC ACID 500 MG TABLET PO SCH (10:44)
[2021-05-20] MEDS: ZINC SULFATE 220 MG ( 50 ) CAPSULE PO SCH (10:44)
[2021-05-20] MEDS: AMLODIPINE 10MG TABLET PO SCH (10:45)
[2021-05-20] MEDS: COLCHICINE 0.6MG TABLET PO SCH (10:45)
[2021-05-20] MEDS: MULTIVITAMINS,THER W-MINERALS TABLET PO SCH (10:46)
[2021-05-20 12:00] VITALS: BP 134/72
[2021-05-20 16:00] VITALS: BP 119/77
[2021-05-20] MEDS: HYDROCODONE/ACETAMINOPHEN 5/325MG TABLET PO PRN (18:36)
[2021-05-20 20:00] VITALS: BP 101/74
[2021-05-20] MEDS: ATORVASTATIN CALCIUM 10MG TABLET PO SCH (21:36)
[2021-05-21] VITALS: BP 112/64
[2021-05-21] MEDS: CARBIDOPA/LEVODOPA 25/100MG TABLET PO SCH ×4 (00:12→18:48)
[2021-05-21] MEDS: METOCLOPRAMIDE HCL 10MG TABLET PO SCH ×4 (00:12→18:48)
[2021-05-21 04:00] VITALS: BP 142/78
[2021-05-21] MEDS: PRAMIPEXOLE DI-HCL 0.25MG TABLET PO SCH ×3 (06:17→21:01)
[2021-05-21] MEDS: ALENDRONATE SODIUM 35MG TABLET PO SCH (09:00)
[2021-05-21] MEDS: POLYETHYLENE GLYCOL 3350 (17GM) 1 DOSE PACK PO SCH (10:18)
[2021-05-21] MEDS: POTASSIUM CHLORIDE 20MEQ TABLET SR PO SCH (10:19)
[2021-05-21] MEDS: ASCORBIC ACID 500 MG TABLET PO SCH (10:20)
[2021-05-21] MEDS: CHOLECALCIFEROL (D3) 1000 UNIT TABLET PO SCH (10:21)
[2021-05-21] MEDS: MULTIVITAMINS,THER W-MINERALS TABLET PO SCH (10:21)
[2021-05-21] MEDS: COLCHICINE 0.6MG TABLET PO SCH (10:21)
[2021-05-21] MEDS: ZINC SULFATE 220 MG ( 50 ) CAPSULE PO SCH (10:21)
[2021-05-21] MEDS: AMLODIPINE 10MG TABLET PO SCH (10:21)
[2021-05-21] MEDS: HYDROCODONE/ACETAMINOPHEN 5/325MG TABLET PO PRN ×2 (11:54→21:01)
[2021-05-21 20:00] VITALS: BP 111/57
[2021-05-21] MEDS: ATORVASTATIN CALCIUM 10MG TABLET PO SCH (21:01)
[2021-05-22] VITALS: BP 121/69
[2021-05-22] MEDS: METOCLOPRAMIDE HCL 10MG TABLET PO SCH ×5 (00:29→23:44)
[2021-05-22] MEDS: CARBIDOPA/LEVODOPA 25/100MG TABLET PO SCH ×5 (00:29→23:44)
[2021-05-22 04:00] VITALS: BP 120/65
[2021-05-22] MEDS: HYDROCODONE/ACETAMINOPHEN 5/325MG TABLET PO PRN ×2 (05:10→18:38)
[2021-05-22] MEDS: PRAMIPEXOLE DI-HCL 0.25MG TABLET PO SCH ×3 (05:10→21:05)
[2021-05-22 08:00] VITALS: BP 123/75
[2021-05-22] MEDS: ASCORBIC ACID 500 MG TABLET PO SCH (10:47)
[2021-05-22] MEDS: MULTIVITAMINS,THER W-MINERALS TABLET PO SCH (10:47)
[2021-05-22] MEDS: AMLODIPINE 10MG TABLET PO SCH (10:47)
[2021-05-22] MEDS: ZINC SULFATE 220 MG ( 50 ) CAPSULE PO SCH (10:47)
[2021-05-22] MEDS: POTASSIUM CHLORIDE 20MEQ TABLET SR PO SCH (10:47)
[2021-05-22] MEDS: COLCHICINE 0.6MG TABLET PO SCH (10:47)
[2021-05-22] MEDS: POLYETHYLENE GLYCOL 3350 (17GM) 1 DOSE PACK PO SCH (10:48)
[2021-05-22] MEDS: CHOLECALCIFEROL (D3) 1000 UNIT TABLET PO SCH (10:48)
[2021-05-22 12:00] VITALS: BP 103/69
[2021-05-22 16:00] VITALS: BP 111/63
[2021-05-22 20:00] VITALS: BP 107/47
[2021-05-22 21:05] LABS: CREATINE KINASE 50 IU/L (26-192)
[2021-05-22] MEDS: ATORVASTATIN CALCIUM 10MG TABLET PO SCH (21:05)
[2021-05-22 21:06] LABS: CREATINE KINASE MB FRACTION 1.6 ng/mL (0.5-3.6)
[2021-05-22] MEDS: NITROGLYCERIN OINT 1GM/INCH UDPKT TD SCH (21:06)
[2021-05-23] VITALS (7 sets, daily range): BP systolic 106–153; BP diastolic 50–83
[2021-05-23] MEDS: NITROGLYCERIN OINT 1GM/INCH UDPKT TD SCH ×3 (05:05→22:34)
[2021-05-23] MEDS: METOCLOPRAMIDE HCL 10MG TABLET PO SCH ×3 (05:05→20:16)
[2021-05-23] MEDS: HYDROCODONE/ACETAMINOPHEN 5/325MG TABLET PO PRN ×3 (05:05→22:35)
[2021-05-23] MEDS: PRAMIPEXOLE DI-HCL 0.25MG TABLET PO SCH ×3 (05:05→21:53)
[2021-05-23] MEDS: CARBIDOPA/LEVODOPA 25/100MG TABLET PO SCH ×3 (05:10→20:16)
[2021-05-23 06:47] LABS: CREATINE KINASE 53 IU/L (26-192)
[2021-05-23 06:50] LABS: CREATINE KINASE MB FRACTION 1.1 ng/mL (0.5-3.6)
[2021-05-23] MEDS: CHOLECALCIFEROL (D3) 1000 UNIT TABLET PO SCH (09:00)
[2021-05-23] MEDS: AMLODIPINE 10MG TABLET PO SCH (09:35)
[2021-05-23] MEDS: POLYETHYLENE GLYCOL 3350 (17GM) 1 DOSE PACK PO SCH (09:35)
[2021-05-23] MEDS: COLCHICINE 0.6MG TABLET PO SCH (09:35)
[2021-05-23] MEDS: MULTIVITAMINS,THER W-MINERALS TABLET PO SCH (09:36)
[2021-05-23] MEDS: ZINC SULFATE 220 MG ( 50 ) CAPSULE PO SCH (09:36)
[2021-05-23] MEDS: POTASSIUM CHLORIDE 20MEQ TABLET SR PO SCH (09:36)
[2021-05-23] MEDS: ASCORBIC ACID 500 MG TABLET PO SCH (09:36)
[2021-05-23 15:05] LABS: CREATINE KINASE 61 IU/L (26-192)
[2021-05-23 15:14] LABS: CREATINE KINASE MB FRACTION < 1.0 ng/mL (0.5-3.6)
[2021-05-23] MEDS: ATORVASTATIN CALCIUM 10MG TABLET PO SCH (21:53)
[2021-05-24] VITALS: BP 139/100
[2021-05-24] MEDS: CARBIDOPA/LEVODOPA 25/100MG TABLET PO SCH ×2 (00:57→06:29)
[2021-05-24] MEDS: METOCLOPRAMIDE HCL 10MG TABLET PO SCH ×2 (00:57→06:46)
[2021-05-24 04:00] VITALS: BP 132/94
[2021-05-24 06:29] VITALS: BP 132/94
[2021-05-24] MEDS: NITROGLYCERIN OINT 1GM/INCH UDPKT TD SCH (06:29)
[2021-05-24] MEDS: HYDROCODONE/ACETAMINOPHEN 5/325MG TABLET PO PRN (06:29)
[2021-05-24] MEDS: PRAMIPEXOLE DI-HCL 0.25MG TABLET PO SCH (06:29)
== END 2021-05-24 08:50 | DRG 951 ==
LOC: ER 10:20 → MICUSO 14:40 → 6EST 22:38
PROVIDERS: ADMIT Internal Medicine Nephrology; ATTEND Internal Medicine Nephrology
PROC: 0KBP0ZZ Excision of Left Hip Muscle, Open Approach (ICD-10-PCS; principal; 2021-05-04)
PROC: 0KBN0ZZ Excision of Right Hip Muscle, Open Approach (ICD-10-PCS; 2021-05-04)
DX: N39.0 Urinary tract infection, site not specified (principal); L89.154 Pressure ulcer of sacral region, stage 4; E46 Unspecified protein-calorie malnutrition; F02.80 Dementia in other diseases classified elsewhere, unspecified severity, without behavioral disturbance, psychotic disturbance, mood disturbance, and anxiety; G20 Parkinson's disease; D25.9 Leiomyoma of uterus, unspecified; K56.41 Fecal impaction; R13.12 Dysphagia, oropharyngeal phase; I10 Essential (primary) hypertension; Z93.1 Gastrostomy status; R32 Unspecified urinary incontinence; Z96.659 Presence of unspecified artificial knee joint; Z96.612 Presence of left artificial shoulder joint; Z20.822 Contact with and (suspected) exposure to COVID-19; S31.000A Unspecified open wound of lower back and pelvis without penetration into retroperitoneum, initial encounter; X58.XXXA Exposure to other specified factors, initial encounter; Y93.89 Activity, other specified; Y92.89 Other specified places as the place of occurrence of the external cause; Y99.8 Other external cause status; Z68.20 Body mass index [BMI] 20.0-20.9, adult; B95.2 Enterococcus as the cause of diseases classified elsewhere
CPT/HCPCS: 36415; 71045; 74018; 74177; 76705; 80048; 80053; 81003; 82040; 82550; 82553; 82962; 83605; 84075; 84134; 84145; 84484; 85025; 87077; 87186; 87426; 92610; 93005; 97162; 99285; J1956; J2270; J2405; J2765; J3490; J7030; J8597; Q9967